=== PATIENT | female | born 1940 | race African-American/Black ===

== ENCOUNTER 2019-07-12 09:36 | Emergency (ER) | payer OTHER, SELFPAY ==
[2019-07-12] MEDS ORDERED: NA CHLORIDE 0.9% 1,000 ML ONE (09:50)
[2019-07-12] MEDS ORDERED: FAMOTIDINE 20 MG/2 ML VIAL IV ONE (09:50)
--- NOTE | 2019-07-12 10:07 | RAD REPORT ---
EXAM DESCRIPTION: CT - Head Brain Wo Cont - 07/12/2019 9:57 am CLINICAL HISTORY: DIZZINESS, syncope, patient found on the floor, hernia repair 4 days earlier COMPARISON: No comparisons TECHNIQUE: Axial 5 mm thick images of the head were obtained without IV contrast. All CT scans are performed using dose optimization technique as appropriate and may include automated exposure control or mA/KV adjustment according to patient size. FINDINGS: No intracranial hemorrhage, mass, edema or shift of mid-line structures. No acute infarcti on changes seen. No abnormal extra-axial fluid collections. Ventricles are normal. Arterial and physi ologic calcifications are present. A mild asymmetry is created by head tilt. Patient has no significa nt atrophy or chronic ischemic change. Mastoid air cells and visualized portions of the paranasal sinuses are clear. No acute bony findings. IMPRESSION: Negative non-contrast CT head examination.
[2019-07-12 10:43] LABS: ALT/SGPT 15 U/L (12-78); AST/SGOT 17 U/L (15-37); Albumin 3.2 g/dL (3.4-5.0); Alkaline Phosphatase 66 U/L (45-117); BUN Blood Urea Nitrogen 17 mg/dL (7-18); Bicarbonate 23 mmol/L (21-32); Bilirubin Direct < 0.1 mg/dL (0-0.2); Bilirubin Total 0.3 mg/dL (0.2-1.0); Glucose Level 132 mg/dL (74-106); Lipase 125 U/L (73-393); Magnesium 1.6 mg/dL (1.8-2.4); NT PRO-BNP 649 pg/mL (<450); Potassium 4.8 mmol/L (3.5-5.1); Protein, Total 7.6 g/dL (6.4-8.2); Sodium Level 128 mmol/L (136-145); Troponin (Emerg Dept Use Only) 0.02 ng/mL (0.0-0.045)
[2019-07-12 10:57] LABS: Absolute Lymphocytes (CBC) 1.4 K/uL (0.7-4.9); Basophils % 1.3 % (0-1.3); Hematocrit 29.8 % (36.0-45.0); MPV 7.9 fL (7.6-11.3); RBC Red Blood Cell Count 3.48 M/uL (3.86-4.86)
[2019-07-12 11:00] LABS: Protime INR 1.04
[2019-07-12] MEDS ORDERED: MAGNESIUM SULFATE 1 gm IVPB 1 GM/100 ML BAG IV ONE (11:22)
--- NOTE | 2019-07-12 11:59 | RAD REPORT ---
EXAM DESCRIPTION: RAD - Abdomen Acute Series - 07/12/2019 11:34 am CLINICAL HISTORY: Abdominal pain FINDINGS: The bowel gas pattern is unremarkable. Free air is not seen beneath the diaphragm. Lungs appear clear of acute infiltrate
--- NOTE | 2019-07-12 12:03 | ER ---
Nurse's Notes [facility] Name: Scarlet Celeste Age: 79 yrs Sex: Female : 1940 Arrival Date: 07/12/2019 Time: 09:38 Bed 6 Private MD: Diagnosis: Weakness;Anemia, unspecified;Hypomagnesemia;Syncope and collapse-near;Volume depletion;Type 2 diabetes mellitus;Hypo-osmolality and hyponatremia;Urinary tract infection, site not specified Presentation: 07/12 09:38 Presenting complaint: EMS states: Daughter found pt on the ground at home, had a hernia jl7 repair 4 days ago, pt reports feeling weak every since the surgery, pt reports no BM since Monday or Monday and is having generalized abdominal discomfort. Transition of care: patient was not received from another setting of care. Onset of symptoms was July 12, 2019. Risk Assessment: Do you want to hurt yourself or someone else? Patient reports no desire to harm self or others. Initial Sepsis Screen: Does the patient meet any 2 criteria? No. Patient's initial sepsis screen is negative. Does the patient have a suspected source of infection? No. Patient's initial sepsis screen is negative. Care prior to arrival: None. 09:38 Method Of Arrival: EMS: [facility] 09:38 Acuity: GUIDO 2 Historical: - Allergies: 09:42 PENICILLINS; jl7 09:42 amlodipine; jl7 - PMHx: 09:42 Hypertension; Diabetes - NIDDM; jl7 - PSHx: 09:42 Hernia repair; jl7 - Coronavirus screen:: The patient has NOT traveled to [place] in the past 14 days. Proceed with normal triage process as indicated. - Social history:: Smoking status: Patient denies any tobacco usage or history of. - Family history:: not pertinent. - Ebola Screening: : No symptoms or risks identified at this time. Screenin:50 Abuse screen: Denies threats or abuse. Nutritional screening: No deficits noted. em Tuberculosis screening: No symptoms or risk factors identified. Fall Risk None identified. Assessment: 09:50 General: Appears in no apparent distress. comfortable, Behavior is calm, cooperative, em Reports fatigue for Denies fever. Pain: Complains of pain in abdomen Pain currently is 3 out of 10 on a pain scale. Neuro: Level of Consciousness is awake, alert, obeys commands, Oriented to person, place, time, situation, Appropriate for age Reports a syncopal episode weakness since Monday. Cardiovascular: Capillary refill < 3 seconds Patient's skin is warm and dry. Rhythm is sinus bradycardia. Respiratory: Airway is patent Respiratory effort is even, unlabored, Respiratory pattern is regular, symmetrical. GI: Abdomen is flat, abdominal incisions noted from recent hernia surgery, no redness or drainage noted, steri strips in place, abdominal binder in place Bowel sounds present X 4 quads. Reports constipation, since Monday Patient currently denies nausea, vomiting. : Reports. Derm: Skin is intact, is thin, Skin is dry, Skin is pale. Musculoskeletal: Capillary refill < 3 seconds, Range of motion: intact in all extremities. 10:29 Reassessment: Patient appears in no apparent distress at this time. Patient and/or em family updated on plan of care and expected duration. Pain level reassessed. Patient is alert, oriented x 3, equal unlabored respirations, skin warm/dry/pink. daughter at bedside. 10:42 Reassessment: recollect sent to lab. em 11:14 Reassessment: Pt requested a bedpan, informed pt we needed to get a urine sample to [facility] send for culture, pt refused straight cath at this time and reports feeling too weak to provide a clean catch. 11:35 Reassessment: reports tiredness during orthostatics, denied dizziness, tolerated well. em 12:29 Reassessment: reports feeling chest tightness after medication administration, provider em notified. Vital Signs: 09:42 BP 129 / 68; Pulse 52; Resp 16 S; Temp 98.1(O); Pulse Ox 96% on R/A; jl7 10:29 BP 128 / 59; Pulse 60; Resp 16; Temp 98.1(O); Pulse Ox 99% on R/A; em 11:26 BP 128 / 66 Supine; Pulse 64; em 11:26 BP 140 / 65 Sitting; Pulse 62; em 11:26 BP 133 / 65 Standing; Pulse 61; em 11:26 tolerated orthostatics well, denied dizziness em ED Course: 09:38 Patient arrived in ED. jl7 09:40 Mark Hernandez MD is Attending Physician. [facility] 09:40 Gibran Miles, RN is Primary Nurse. em 09:41 Triage completed. jl7 09:42 Arm band placed on right wrist. jl7 09:43 EKG completed in triage. Results shown to MD. jl7 09:50 Patient has correct armband on for positive identification. Placed in gown. Bed in low em position. Call light in reach. Side rails up X2. shelter monitor on. Pulse ox on. NIBP on. 09:55 Missed attempt(s): 22 gauge in right forearm. Bleeding controlled, band aid applied, em catheter tip intact. 10:22 Initial lab(s) drawn, by me, sent to lab. Inserted saline lock: 22 gauge in left wrist, jl7 using aseptic technique. Blood collected. 12:01 Low Giles MD is Referral Physician. laya 13:13 No provider procedures requiring assistance completed. IV discontinued, intact, jl7 bleeding controlled, No redness/swelling at site. Pressure dressing applied. Administered Medications: 10:21 Drug: NS 0.9% 500 ml Route: IV; Rate: bolus; Site: left wrist; jl7 11:00 Follow up: IV Status: Completed infusion; IV Intake: 500ml em 10:21 Drug: NS 0.9% 1000 ml Route: IV; Rate: 125 ml/hr; Site: left wrist; jl7 12:45 Follow up: IV Status: Order to discontinue infusion em 10:22 Drug: Pepcid 20 mg Route: IVP; Site: left wrist; jl7 10:40 Follow up: Response: No adverse reaction em 11:25 Drug: Magnesium Sulfate 1 grams Route: IVPB; Infused Over: 1 hrs; Site: left wrist; em 12:30 Follow up: Response: No adverse reaction; IV Status: Completed infusion; IV Intake: em 100ml 12:27 Drug: Rocephin 1 grams Route: IV; Rate: per protocol; Site: left wrist; em 12:45 Follow up: Response: No adverse reaction; IV Status: Completed infusion; IV Intake: 10mlem 12:27 Drug: Cipro 250 mg Route: PO; em 12:45 Follow up: Response: No adverse reaction em Point of Care Testing: Blood Glucose: 10:23 Blood Glucose: 141 mg/dL; jl7 Ranges: Intake: 11:00 IV: 500ml; Total: 500ml. em Outcome: 12:01 Discharge ordered by . laya 13:13 Discharged to home ambulatory. gabriella 13:13 Condition: stable 13:13 Discharge instructions given to patient, family, Instructed on discharge instructions, follow up and referral plans. medication usage, Demonstrated understanding of instructions, follow-up care, medications, Prescriptions given X 3. 13:13 Patient left the ED. jl7 Addendum: 07/15/2019 16:55 Addendum: Culture Results: Positive urine culture. Bacteria is resistant to, has s s intermediate sensitivity, or is not tested against prescribed antibiotics. Report given to UGO for further evaluation and then to flooring helper for follow up with patient. Signatures: Mark Hernandez MD MD cha Munoz, Edgar, RN RN Luna Urbina RN RN ss Leal, Jahala, RN RN jl7 Corrections: (The following items were deleted from the chart) 07/12 10:23 09:40 EKG done, by ED staff, reviewed by Mark quiroz jl7
--- NOTE | 2019-07-12 12:03 | EDPHYS ---
Physician Documentation [facility] Name: Scarlet Celeste Age: 79 yrs Sex: Female : 1940 Arrival Date: 07/12/2019 Time: 09:38 Bed 6 Private MD: ED Physician Mark Hrenandez HPI: 07/12 09:44 This 79 yrs old Black Female presents to ER via EMS with complaints of Syncope. laya 09:44 The patient has experienced near-syncope, almost passed out, felt dizzy, felt faint, laya felt generally weak. Onset: The symptoms/episode began/occurred just prior to arrival. Duration: This was a single episode, that lasted 30 second(s). Context: the episode(s) was witnessed, by family. Associated injury: The patient did not suffer any apparent associated injury. Associated signs and symptoms: The patient has no apparent associated signs or symptoms. Current symptoms: Currently, the patient is not experiencing any symptoms. The patient has not experienced similar symptoms in the past. Historical: - Allergies: 09:42 PENICILLINS; jl7 09:42 amlodipine; jl7 - PMHx: 09:42 Hypertension; Diabetes - NIDDM; jl7 - PSHx: 09:42 Hernia repair; jl7 - Coronavirus screen:: The patient has NOT traveled to [place] in the past 14 days. Proceed with normal triage process as indicated. - Social history:: Smoking status: Patient denies any tobacco usage or history of. - Family history:: not pertinent. - Ebola Screening: : No symptoms or risks identified at this time. ROS: 09:44 Constitutional: Negative for fever, chills, and weight loss, Eyes: Negative for injury, laya pain, redness, and discharge, ENT: Negative for injury, pain, and discharge, Neck: Negative for injury, pain, and swelling, Cardiovascular: Negative for chest pain, palpitations, and edema, Respiratory: Negative for shortness of breath, cough, wheezing, and pleuritic chest pain, Abdomen/GI: Negative for abdominal pain, nausea, vomiting, diarrhea, and constipation, Back: Negative for injury and pain, : Negative for injury, bleeding, discharge, and swelling, MS/Extremity: Negative for injury and deformity, Skin: Negative for injury, rash, and discoloration, Psych: Negative for depression, anxiety, suicide ideation, homicidal ideation, and hallucinations, Allergy/Immunology: Negative for hives, rash, and allergies, Endocrine: Negative for neck swelling, polydipsia, polyuria, polyphagia, and marked weight changes, Hematologic/Lymphatic: Negative for swollen nodes, abnormal bleeding, and unusual bruising. 09:44 Neuro: Positive for dizziness, near syncope, weakness. Exam: 09:44 Constitutional: This is a well developed, well nourished patient who is awake, alert, laya and in no acute distress. Head/Face: Normocephalic, atraumatic. Eyes: Pupils equal round and reactive to light, extra-ocular motions intact. Lids and lashes normal. Conjunctiva and sclera are non-icteric and not injected. Cornea within normal limits. Periorbital areas with no swelling, redness, or edema. ENT: Nares patent. No nasal discharge, no septal abnormalities noted. Tympanic membranes are normal and external auditory canals are clear. Oropharynx with no redness, swelling, or masses, exudates, or evidence of obstruction, uvula midline. Mucous membranes moist. Neck: Trachea midline, no thyromegaly or masses palpated, and no cervical lymphadenopathy. Supple, full range of motion without nuchal rigidity, or vertebral point tenderness. No Meningismus. Chest/axilla: Normal chest wall appearance and motion. Nontender with no deformity. No lesions are appreciated. Cardiovascular: Regular rate and rhythm with a normal S1 and S2. No gallops, murmurs, or rubs. Normal PMI, no JVD. No pulse deficits. Respiratory: Lungs have equal breath sounds bilaterally, clear to auscultation and percussion. No rales, rhonchi or wheezes noted. No increased work of breathing, no retractions or nasal flaring. Abdomen/GI: Soft, non-tender, with normal bowel sounds. No distension or tympany. No guarding or rebound. No evidence of tenderness throughout. Back: No spinal tenderness. No costovertebral tenderness. Full range of motion. Skin: Warm, dry with normal turgor. Normal color with no rashes, no lesions, and no evidence of cellulitis. MS/ Extremity: Pulses equal, no cyanosis. Neurovascular intact. Full, normal range of motion. Neuro: Awake and alert, GCS 15, oriented to person, place, time, and situation. Cranial nerves II-XII grossly intact. Motor strength 5/5 in all extremities. Sensory grossly intact. Cerebellar exam normal. Normal gait. Psych: Awake, alert, with orientation to person, place and time. Behavior, mood, and affect are within normal limits. 11:39 Abdomen/GI: Rectal exam: is unremarkable, rectal tone normal, Stool: guaiac negative, [facility] hemorrhoid(s), are not appreciated, mass, is not appreciated, swelling, is not appreciated, tenderness, is not appreciated, the exam is chaperoned by the nurse. Vital Signs: 09:42 BP 129 / 68; Pulse 52; Resp 16 S; Temp 98.1(O); Pulse Ox 96% on R/A; jl7 10:29 BP 128 / 59; Pulse 60; Resp 16; Temp 98.1(O); Pulse Ox 99% on R/A; em 11:26 BP 128 / 66 Supine; Pulse 64; em 11:26 BP 140 / 65 Sitting; Pulse 62; em 11:26 BP 133 / 65 Standing; Pulse 61; em 11:26 tolerated orthostatics well, denied dizziness em MDM: 09:40 Patient medically screened. [facility] 09:45 Data reviewed: vital signs, nurses notes, lab test result(s), EKG, radiologic studies, [facility] CT scan, plain films. 07/12 09:44 Order name: Basic Metabolic Panel [facility] 07/12 09:44 Order name: CBC with Diff [facility] 07/12 09:44 Order name: LFT's [facility] 07/12 09:44 Order name: Magnesium [facility] 07/12 09:44 Order name: NT PRO-BNP [facility] 07/12 09:44 Order name: PT-INR [facility] 07/12 09:44 Order name: Troponin (emerg Dept Use Only) [facility] 07/12 09:44 Order name: Lipase [facility] 07/12 09:44 Order name: Urine Culture [facility] 07/12 09:44 Order name: Type And Screen [facility] 07/12 10:27 Order name: Glucose, Ancillary Testing; Complete Time: 10:36 [facility] 07/12 10:44 Order name: Basic Metabolic Panel; Complete Time: 11:09 [facility] 07/12 10:44 Order name: Liver (Hepatic) Function; Complete Time: 11:09 [facility] 07/12 10:44 Order name: Troponin (Emerg Dept Use Only); Complete Time: 11:09 [facility] 07/12 09:44 Order name: CT Head Brain wo Cont [facility] 07/12 10:24 Order name: CT; Complete Time: 10:36 [facility] 07/12 10:35 Order name: Abdomen Acute Series XRAY [facility] 07/12 10:44 Order name: NT PRO-BNP; Complete Time: 11:09 [facility] 07/12 10:44 Order name: Magnesium; Complete Time: 11:09 [facility] 07/12 10:44 Order name: Lipase; Complete Time: 11:09 [facility] 07/12 10:59 Order name: CBC with Automated Diff; Complete Time: 11:09 [facility] 07/12 11:01 Order name: Type and Screen; Complete Time: 11:09 [facility] 07/12 11:02 Order name: Protime (+INR); Complete Time: 11:09 [facility] 07/12 11:32 Order name: ABO/RH no charge; Complete Time: 11:35 [facility] 07/12 11:50 Order name: Urine Dipstick--Ancillary (enter results) 07/12 12:08 Order name: RAD; Complete Time: 13:04 [facility] 07/12 09:44 Order name: EKG; Complete Time: 09:45 [facility] 07/12 09:44 Order name: Cardiac monitoring; Complete Time: 09:44 [facility] 07/12 09:44 Order name: EKG - Nurse/Tech; Complete Time: 09:44 [facility] 07/12 09:44 Order name: IV Saline Lock; Complete Time: 10:29 [facility] 07/12 09:44 Order name: Labs collected and sent; Complete Time: 10:29 [facility] 07/12 09:44 Order name: O2 Per Protocol; Complete Time: 09:44 [facility] 07/12 09:44 Order name: O2 Sat Monitoring; Complete Time: 09:44 [facility] 07/12 09:44 Order name: Urine Dipstick-Ancillary (obtain specimen); Complete Time: 11:51 [facility] 07/12 10:36 Order name: Labs - recollect needed; Complete Time: 10:44 07/12 11:14 Order name: Orthostatics; Complete Time: 11:38 [facility] 07/12 11:35 Order name: PO challenge; Complete Time: 11:40 [facility] Administered Medications: 10:21 Drug: NS 0.9% 500 ml Route: IV; Rate: bolus; Site: left wrist; jl7 11:00 Follow up: IV Status: Completed infusion; IV Intake: 500ml em 10:21 Drug: NS 0.9% 1000 ml Route: IV; Rate: 125 ml/hr; Site: left wrist; jl7 12:45 Follow up: IV Status: Order to discontinue infusion em 10:22 Drug: Pepcid 20 mg Route: IVP; Site: left wrist; jl7 10:40 Follow up: Response: No adverse reaction em 11:25 Drug: Magnesium Sulfate 1 grams Route: IVPB; Infused Over: 1 hrs; Site: left wrist; em 12:30 Follow up: Response: No adverse reaction; IV Status: Completed infusion; IV Intake: em 100ml 12:27 Drug: Rocephin 1 grams Route: IV; Rate: per protocol; Site: left wrist; em 12:45 Follow up: Response: No adverse reaction; IV Status: Completed infusion; IV Intake: 10mlem 12:27 Drug: Cipro 250 mg Route: PO; em 12:45 Follow up: Response: No adverse reaction em Point of Care Testing: Blood Glucose: 10:23 Blood Glucose: 141 mg/dL; jl7 Ranges: Critical Glucose Levels:Adult <50 mg/dl or >400 mg/dl <40 mg/dl or >180 mg/dl Disposition: 07/12/19 12:01 Discharged to Home. Impression: Weakness, Anemia, unspecified, Hypomagnesemia, Syncope and collapse - near, Volume depletion, Type 2 diabetes mellitus, Hypo-osmolality and hyponatremia, Urinary tract infection, site not specified. - Condition is Stable. - Discharge Instructions: Anemia, Nonspecific, Type 2 Diabetes Mellitus, Diagnosis, Adult, Hypomagnesemia, Hyponatremia, Near-Syncope, Urinary Tract Infection, Adult, Weakness, Fatigue, Urinary Tract Infection, Adult, [id number], Near-Syncope, Kvnn-[id number], Weakness, [id number], Type 2 Diabetes Mellitus, Diagnosis, Adult, Bzen-sy-Hqoe. - Prescriptions for Pepcid 20 mg Oral Tablet - take 1 tablet by ORAL route every 12 hours for 10 days; 20 tablet. Vitamin 27- 0.8 mg Oral Tablet - take 1 tablet by ORAL route once daily; 30 tablet. Cipro 250 mg Oral Tablet - take 1 tablet by ORAL route every 12 hours for 7 days; 14 tablet. - Medication Reconciliation Form, Thank You Letter, Antibiotic Education, Prescription Opioid Use form. - Follow up: Private Physician; When: 2 - 3 days; Reason: Recheck today's complaints, Continuance of care, Re-evaluation by your physician. Follow up: Dr. Low Giles; When: 2 - 3 days; Reason: Recheck today's complaints, Continuance of care, Re-evaluation by your physician. - Problem is new. - Symptoms have improved. Signatures: Dispatcher [employer] EDSeamus Amado RN RN sg Anderson, Corey, MD MD cha Munoz, Edgar, RN RN em Leal, Jahala, RN RN jl7 Corrections: (The following items were deleted from the chart) 13:13 12:01 07/12/2019 12:01 Discharged to Home. Impression: Weakness; Anemia, unspecified; jl7 Hypomagnesemia; Syncope and collapse - near; Volume depletion; Type 2 diabetes mellitus; Hypo-osmolality and hyponatremia; Urinary tract infection, site not specified. Condition is Stable. Discharge Instructions: Anemia, Nonspecific, Type 2 Diabetes Mellitus, Diagnosis, Adult, Hypomagnesemia, Near-Syncope, Weakness, Fatigue, Near-Syncope, Ypvn-[id number], Weakness, Vgyg-mu-Goaf, Type 2 Diabetes Mellitus, Diagnosis, Adult, Aujn-nj-Xacc, Hyponatremia, Urinary Tract Infection, Adult, Urinary Tract Infection, Adult, Zvqg-kn-Zill. Prescriptions for Pepcid 20 mg Oral Tablet - take 1 tablet by ORAL route every 12 hours for 10 days; 20 tablet, Vitamin 27-0.8 mg Oral Tablet - take 1 tablet by ORAL route once daily; 30 tablet, Cipro 250 mg Oral Tablet - take 1 tablet by ORAL route every 12 hours for 7 days; 14 tablet. and Forms are Medication Reconciliation Form, Thank You Letter, Antibiotic Education, Prescription Opioid Use. Follow up: Private Physician; When: 2 - 3 days; Reason: Recheck today's complaints, Continuance of care, Re-evaluation by your physician. Follow up: Dr. Low Giles; When: 2 - 3 days; Reason: Recheck today's complaints, Continuance of care, Re-evaluation by your physician. Problem is new. Symptoms have improved. laya
[2019-07-12] MEDS ORDERED: CIPROFLOXACIN HCL 500 MG TAB ONE (12:13)
[2019-07-12] MEDS ORDERED: CEFTRIAXONE/SWI 1gm 1 GM/10 ML SYR ONE (12:13)
--- NOTE | 2019-07-12 13:33 | EKG ---
Test Date: 2019-07-12 Test Time: 09:39:37 Nuclear Weapons Custodian: ZE MEASUREMENT RESULTS: Intervals: Rate: 52 SC: 154 QRSD: 88 QT: 422 QTc: 392 [place]: P: 62 SC: 154 QRS: 31 T: 53 INTERPRETIVE STATEMENTS: Sinus bradycardia Minimal voltage criteria for LVH, may be normal variant Borderline ECG No previous ECG available for comparison Electronically Signed On 07-12-19 13:32:39 [employer] OFFICER by Elvin Travis
[2019-07-12 13:39] LABS: Urine Blood 1+ (NEG); Urine Glucose NEGATIVE (NEG); Urine Protein NEGATIVE (NEG); Urine Specific Gravity 1.005 (1.005-1.030); Urine pH 5.5 (5.0-7.0)
[2019-07-12 20:56] VITALS: TEMP 98.1
[2019-07-12 20:58] VITALS: O2SAT 99
[2019-07-12 21:14] VITALS: BP 133/65
== END 2019-07-12 13:13 | disposition home or self-care (01) ==
LOC: ER 09:36 → EDBD 09:36 → ER 13:13
DX: E86.9 Volume depletion, unspecified (principal); R53.1 Weakness; D64.9 Anemia, unspecified; E83.42 Hypomagnesemia; E87.1 Hypo-osmolality and hyponatremia; N39.0 Urinary tract infection, site not specified; E11.9 Type 2 diabetes mellitus without complications; I10 Essential (primary) hypertension; Z88.0 Allergy status to penicillin; Z88.8 Allergy status to other drugs, medicaments and biological substances
CPT/HCPCS: 96365; 96361; 93005; 87088; 85025; 87086; 80048; 36415; 86900; 83735; 86850; 85610; 86901; 82947; 80076; 87077; 87186; 81003; 84484; 83690; 83880; 70450; 74022; 96375; 99284; J3475; J0696; J7030

== ENCOUNTER 2019-08-06 12:14 | Observation (INO) | payer OTHER ==
--- OUTSIDE RECORDS SUMMARY | 2019-08-06 12:39 | XMS REPORT ---
:1940 [facility] [address] [place] [address] Care Team Providers Name Role Phone ANGY GONZALEZ Unavailable Unavailable Problems This patient has no known problems. Allergies, Adverse Reactions, Alerts This patient has no known allergies or adverse reactions. Medications This patient has no known medications. 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 Contrast is administered to evaluate the solid organs COMPARISON: Abdominal ultrasound from 07/29/2017 DISCUSSION: LIVER: No focal liver lesion. Main portal vein is patent.BILIARY: Mild ectasia of the common bile duct measuring up to 7 mm. No discrete filling defects are identified within the biliary tree. No keyshawn intrahepatic biliary ductal dilation. There are findings of prior cholecystectomy. Metallic susceptibility artifact is seen at the saarh hepatis and lateral to the pancreatic head.PANCREAS: No pancreatic ductal dilation. No definite solid pancreatic lesion within limitations of examination and artifacts. There is a 2.9 cm duodenal diverticulum adjacent to the pancreatic head.SPLEEN: No splenomegaly. ADRENALS: No nodule.KIDNEYS: Bilateral parapelvic cysts. No keyshawn hydronephrosis. Bilateral subcentimeter T2 hyperintense cysts are incompletely characterized. No definite solid renal lesion. PERITONEUM/RETROPERITONEUM: No free fluid.LYMPH NODES: No upper abdominal lymphadenopathy. VESSELS: Abdominal aorta is normal in caliber. BONES AND SOFT TISSUES: Degenerative changes in the lumbar spine. IMPRESSION: No specific findings of hepatobiliary or pancreatic malignancy. The common bile duct is mildly ectatic. No discrete filling defects are identified in the biliary tree. There is a small amount of metallic susceptibility artifact at the sarah hepatis and adjacent to the pancreatic head, likely from prior cholecystectomy, limiting evaluation. If there remains high clinical suspicion for pancreatic head lesion, a contrast-enhanced CT is recommended. Signed: Jagdish Goinseport Verified Date/Time: 07/31/2017 12:17:51 Reading Location: [facility] [id number] CT Body Reading Room -GLUCOSE METER 2017-07-31 12:08:00 Test Item Value Reference Range Comments POC-GLUCOSE METER (BEAKER) (test 253 mg/dL 70-110 TESTED AT [facility] [address] [facility] leuc=5411) [facility] [address] CBC W/PLT COUNT & AUTO [id number] 12:08:00 Test Item Value Reference Range Comments WHITE BLOOD CELL COUNT (BEAKER) (test zksk=107) 7.3 K/ L 3.5-10.5 RED BLOOD CELL COUNT (BEAKER) (test mdrk=093) 3.94 M/ L 3.93-5.22 HEMOGLOBIN (BEAKER) (test bnjd=402) 11.3 GM/DL 11.2-15.7 HEMATOCRIT (BEAKER) (test waet=902) 35.8 % 34.1-44.9 MEAN CORPUSCULAR VOLUME (BEAKER) (test auzm=621) 90.9 fL 79.4-94.8 MEAN CORPUSCULAR HEMOGLOBIN (BEAKER) (test 28.7 pg 25.6-32.2 gutd=100) MEAN CORPUSCULAR HEMOGLOBIN CONC (BEAKER) (test 31.6 GM/DL 32.2-35.5 fntm=947) RED CELL DISTRIBUTION WIDTH (BEAKER) (test 13.4 % 11.7-14.4 guiw=616) PLATELET COUNT (BEAKER) (test jbir=114) 268 K/CU MM 150-450 MEAN PLATELET VOLUME (BEAKER) (test fdnh=607) 10.0 fL 9.4-12.3 NUCLEATED RED BLOOD CELLS (BEAKER) (test 0 /100 WBC 0-0 kzlr=914) NEUTROPHILS RELATIVE PERCENT (BEAKER) (test 41 % axmy=217) LYMPHOCYTES RELATIVE PERCENT (BEAKER) (test 46 % nayn=609) MONOCYTES RELATIVE PERCENT (BEAKER) (test 8 % olcl=679) EOSINOPHILS RELATIVE PERCENT (BEAKER) (test 3 % ndce=919) BASOPHILS RELATIVE PERCENT (BEAKER) (test 2 % rumy=600) NEUTROPHILS ABSOLUTE COUNT (BEAKER) (test 2.99 K/ L 1.56-6.13 pmwe=789) LYMPHOCYTES ABSOLUTE COUNT (BEAKER) (test 3.34 K/ L 1.18-3.74 rglc=408) MONOCYTES ABSOLUTE COUNT (BEAKER) (test 0.57 K/ L 0.24-0.36 urgp=878) EOSINOPHILS ABSOLUTE COUNT (BEAKER) (test 0.22 K/ L 0.04-0.36 qsnb=591) BASOPHILS ABSOLUTE COUNT (BEAKER) (test 0.11 K/ L 0.01-0.08 jzvf=469) IMMATURE GRANULOCYTES-RELATIVE PERCENT (BEAKER) 0 % 0-1 (test gcue=3036) POCT-GLUCOSE [id number] 08:04:00 Test Item Value Reference Range Comments POC-GLUCOSE METER (BEAKER) 99 mg/dL 70-110 TESTED AT [facility] [address] [facility] (test qnvw=4096) [facility] [address] [id number] 06:55:00 Test Item Value Reference Range Comments MAGNESIUM (BEAKER) (test tuxe=910) 1.6 mg/dL 1.6-2.6 BASIC METABOLIC [id number] 06:55:00 Test Item Value Reference Range Comments SODIUM (BEAKER) (test 140 meq/L 136-145 hnzx=917) POTASSIUM (BEAKER) (test 3.7 meq/L 3.5-5.1 kntl=590) CHLORIDE (BEAKER) (test 109 meq/L 98-107 icjp=645) CO2 (BEAKER) (test 23 meq/L 22-29 psms=746) BLOOD UREA NITROGEN 12 mg/dL 7-21 (BEAKER) (test jtms=850) CREATININE (BEAKER) (test 0.82 mg/dL 0.57-1.25 jvpo=810) GLUCOSE RANDOM (BEAKER) 96 mg/dL 70-105 (test uwvo=598) CALCIUM (BEAKER) (test 9.5 mg/dL 8.4-10.2 cuvj=590) EGFR (BEAKER) (test 82 mL/min/1.73 sq m ESTIMATED GFR IS NOT fmih=9081) ACCURATE CREATININE CLEARANCE IN PREDICTING GLOMERULAR FILTRATION RATE. ESTIMATED GFR IS NOT APPLICABLE FOR DIALYSIS PATIENTS. POCT-GLUCOSE [id number] 21:05:00 Test Item Value Reference Range Comments POC-GLUCOSE METER (BEAKER) 98 mg/dL 70-110 TESTED AT [address] (test dpxg=9886) [place] [id number] POCT-GLUCOSE [id number] 17:04:00 Test Item Value Reference Range Comments POC-GLUCOSE METER (BEAKER) 89 mg/dL 70-110 TESTED AT [address] (test rehe=4799) [place] [id number] POCT-GLUCOSE EBSAQ Test Item Value Reference Range Comments POC-GLUCOSE METER (BEAKER) 202 mg/dL 70-110 TESTED AT [address] (test rttb=6242) [place] [id number] CBC W/PLT COUNT & AUTO [id number] 09:44:00 Test Item Value Reference Range Comments WHITE BLOOD CELL COUNT (BEAKER) (test fizo=819) 7.1 K/ L 3.5-10.5 RED BLOOD CELL COUNT (BEAKER) (test rwwc=584) 3.76 M/ L 3.93-5.22 HEMOGLOBIN (BEAKER) (test vodk=037) 11.0 GM/DL 11.2-15.7 HEMATOCRIT (BEAKER) (test sebg=196) 34.6 % 34.1-44.9 MEAN CORPUSCULAR VOLUME (BEAKER) (test cmsj=325) 92.0 fL 79.4-94.8 MEAN CORPUSCULAR HEMOGLOBIN (BEAKER) (test 29.3 pg 25.6-32.2 rzrt=245) MEAN CORPUSCULAR HEMOGLOBIN CONC (BEAKER) (test 31.8 GM/DL 32.2-35.5 mpxp=494) RED CELL DISTRIBUTION WIDTH (BEAKER) (test 13.6 % 11.7-14.4 kucy=028) PLATELET COUNT (BEAKER) (test nhnc=429) 252 K/CU MM 150-450 MEAN PLATELET VOLUME (BEAKER) (test yxur=243) 9.9 fL 9.4-12.3 NUCLEATED RED BLOOD CELLS (BEAKER) (test 0 /100 WBC 0-0 chdg=848) IMMATURE GRANULOCYTES-RELATIVE PERCENT (BEAKER) 0 % 0-1 (test jlnq=0264) (MANUAL DIFFERENTIAL)2017-07-30 09:44:00 Test Item Value Reference Range Comments NEUTROPHILS - REL (DIFF) (BEAKER) (test xtrz=7113) 37 % LYMPHOCYTES - REL (DIFF) (BEAKER) (test yvko=8702) 51 % MONOCYTES - REL (DIFF) (BEAKER) (test ioej=0436) 9 % EOSINOPHILS - REL (DIFF) (BEAKER) (test zmdj=5789) 3 % BASOPHILS - REL (DIFF) (BEAKER) (test lnlm=4984) 0 % NEUTROPHILS - ABS (DIFF) (BEAKER) (test hdeq=9795) 2.63 K/ L 1.80-8.00 LYMPHOCYTES - ABS (DIFF) (BEAKER) (test envl=4763) 3.62 K/ L 1.48-4.50 MONOCYTES - ABS (DIFF) (BEAKER) (test zjjn=9675) 0.64 K/ L 0.00-1.30 EOSINOPHILS - ABS (DIFF) (BEAKER) (test gzmz=6162) 0.21 K/ L 0.00-0.50 BASOPHILS - ABS (DIFF) (BEAKER) (test dyyh=0078) 0.00 K/ L 0.00-0.20 TOTAL COUNTED (BEAKER) (test xnaz=3576) 100 WBC MORPHOLOGY (BEAKER) (test gkmd=454) Normal PLT MORPHOLOGY (BEAKER) (test jkqo=804) Normal RBC MORPHOLOGY (BEAKER) (test gxuk=820) Normal CREATINE KINASE (CK), TOTAL AND [id number] 07:51:00 Test Item Value Reference Range Comments CREATINE KINASE TOTAL (BEAKER) (test dulm=810) 143 U/L 29-200 CREATINE KINASE-MB (BEAKER) (test lmlt=050) 4.1 ng/mL 0.0-6.6 CREATINE KINASE-MB INDEX (BEAKER) (test seoj=290) 2.9 % CK-MB Reference Range:<6.7 Normal6.7-10.0 Borderline>10.0 AbnormalTROPONIN [id number] 07:51:00 Test Item Value Reference Range Comments TROPONIN I (BEAKER) (test pajk=966) 0.02 ng/mL 0.00-0.03 Troponin I (TnI) levels must be interpreted in the context of the presenting symptoms and the clinical findings. Elevated TnI levels indicate myocardial damage, but are not specific for ischemic heart disease. Elevated TnI levels are seen in patients with other cardiac conditions (including myocarditis and congestive heart failure), and slight TnI elevations occur in patients with other conditions, including sepsis, renal failure, acidosis, acute neurological disease, and persistent tachyarrhythmia.POCT-GLUCOSE [id number] 07:41:00 Test Item Value Reference Range Comments POC-GLUCOSE METER (BEAKER) 85 mg/dL 70-110 TESTED AT [facility] [address] [facility]) (test cgzu=9075) [facility] [address] GAMMA GLUTAMYL TRANSFERASE (GGT)2017-07-30 07:41:00 Test Item Value Reference Range Comments GAMMA GLUTAMYL TRANSFERASE (BEAKER) (test lkjq=882) 305 U/L 9-64 BILIRUBIN, [id number] 07:41:00 Test Item Value Reference Range Comments BILIRUBIN DIRECT (BEAKER) (test dgcj=034) 0.2 mg/dL 0.1-0.5 COMPREHENSIVE METABOLIC [id number] 07:41:00 Test Item Value Reference Range Comments TOTAL PROTEIN (BEAKER) 7.1 gm/dL 6.0-8.3 (test fjsc=449) ALBUMIN (BEAKER) (test 3.3 g/dL 3.5-5.0 oigh=0425) ALKALINE PHOSPHATASE 186 U/L 40-150 (BEAKER) (test dnfp=353) BILIRUBIN TOTAL (BEAKER) < mg/dL 0.2-1.2 (test hsdm=230) SODIUM (BEAKER) (test 141 meq/L 136-145 xlhf=115) POTASSIUM (BEAKER) (test 3.6 meq/L 3.5-5.1 dbpq=443) CHLORIDE (BEAKER) (test 110 meq/L 98-107 sufx=489) CO2 (BEAKER) (test 24 meq/L 22-29 feao=053) BLOOD UREA NITROGEN 13 mg/dL 7-21 (BEAKER) (test vtrt=903) CREATININE (BEAKER) (test 0.82 mg/dL 0.57-1.25 tqir=000) GLUCOSE RANDOM (BEAKER) 83 mg/dL 70-105 (test oisl=636) CALCIUM (BEAKER) (test 9.3 mg/dL 8.4-10.2 bvhy=778) AST (SGOT) (BEAKER) (test 30 U/L 5-34 znmx=296) ALT (SGPT) (BEAKER) (test 88 U/L 6-55 lprl=812) EGFR (BEAKER) (test 82 mL/min/1.73 sq m ESTIMATED GFR IS NOT lpfx=3870) ACCURATE CREATININE CLEARANCE IN PREDICTING GLOMERULAR FILTRATION RATE. ESTIMATED GFR IS NOT APPLICABLE FOR DIALYSIS PATIENTS. POCT-GLUCOSE [id number] 20:46:00 Test Item Value Reference Range Comments POC-GLUCOSE METER (BEAKER) 99 mg/dL 70-110 TESTED AT [address] (test zqgg=2404) [place] [address] POCT-GLUCOSE [id number] 17:37:00 Test Item Value Reference Range Comments POC-GLUCOSE METER (BEAKER) 143 mg/dL 70-110 TESTED AT [address] (test epat=1364) [place] [address] CREATINE KINASE (CK), TOTAL AND [id number] 17:27:00 Test Item Value Reference Range Comments CREATINE KINASE TOTAL (BEAKER) (test wqps=512) 196 U/L 29-200 CREATINE KINASE-MB (BEAKER) (test rmtp=503) 5.1 ng/mL 0.0-6.6 CREATINE KINASE-MB INDEX (BEAKER) (test bmsy=901) 2.6 % CK-MB Reference Range:<6.7 Normal6.7-10.0 Borderline>10.0 AbnormalTROPONIN [id number] 17:27:00 Test Item Value Reference Range Comments TROPONIN I (BEAKER) (test pjyj=836) 0.02 ng/mL 0.00-0.03 Troponin I (TnI) levels must be interpreted in the context of the presenting symptoms and the clinical findings. Elevated TnI levels indicate myocardial damage, but are not specific for ischemic heart disease. Elevated TnI levels are seen in patients with other cardiac conditions (including myocarditis and congestive heart failure), and slight TnI elevations occur in patients with other conditions, including sepsis, renal failure, acidosis, acute neurological disease, and persistent tachyarrhythmia.[id number] 16:54:00 Test Item Value Reference Range Comments D-DIMER QUANTITATIVE (BEAKER) (test rkrf=405) 0.60 MG/L FEU <0.50 Intended Use: The D-Dimer Assay can be used to aid in the diagnosis of Deep Vein Thrombosis (DVT) and Pulmonary Embolism Disease (PED).In patients with low pre-test probability, various studies concerning STA Liatest D-dimer test have reported that with a cutoff value of 0.50 MG/L FEU, the Negative Predictive Value (NPV) regarding the exclusion of thrombosis is within 95-100% range.POCT- GLUCOSE [id number] 14:54:00 Test Item Value Reference Range Comments POC-GLUCOSE METER (BEAKER) 113 mg/dL 70-110 TESTED AT [facility] [address] [facility]) (test bgtm=4217) [facility] [address] CBC W/PLT COUNT & AUTO [id number] 13:06:00 Test Item Value Reference Range Comments WHITE BLOOD CELL COUNT (BEAKER) (test rqpj=926) 7.2 K/ L 3.5-10.5 RED BLOOD CELL COUNT (BEAKER) (test uzqb=720) 3.92 M/ L 3.93-5.22 HEMOGLOBIN (BEAKER) (test ijxt=184) 11.3 GM/DL 11.2-15.7 HEMATOCRIT (BEAKER) (test bshk=234) 35.6 % 34.1-44.9 MEAN CORPUSCULAR VOLUME (BEAKER) (test aslb=470) 90.8 fL 79.4-94.8 MEAN CORPUSCULAR HEMOGLOBIN (BEAKER) (test 28.8 pg 25.6-32.2 ekam=627) MEAN CORPUSCULAR HEMOGLOBIN CONC (BEAKER) (test 31.7 GM/DL 32.2-35.5 tqcn=221) RED CELL DISTRIBUTION WIDTH (BEAKER) (test 13.8 % 11.7-14.4 htcz=870) PLATELET COUNT (BEAKER) (test vrhw=177) 254 K/CU MM 150-450 MEAN PLATELET VOLUME (BEAKER) (test pwfn=578) 10.2 fL 9.4-12.3 NUCLEATED RED BLOOD CELLS (BEAKER) (test 0 /100 WBC 0-0 xveu=268) NEUTROPHILS RELATIVE PERCENT (BEAKER) (test 37 % scyf=464) LYMPHOCYTES RELATIVE PERCENT (BEAKER) (test 50 % yrvz=363) MONOCYTES RELATIVE PERCENT (BEAKER) (test 8 % eytj=257) EOSINOPHILS RELATIVE PERCENT (BEAKER) (test 4 % fplt=456) BASOPHILS RELATIVE PERCENT (BEAKER) (test 1 % owmz=944) NEUTROPHILS ABSOLUTE COUNT (BEAKER) (test 2.66 K/ L 1.56-6.13 vjlb=745) LYMPHOCYTES ABSOLUTE COUNT (BEAKER) (test 3.57 K/ L 1.18-3.74 jnbr=823) MONOCYTES ABSOLUTE COUNT (BEAKER) (test 0.55 K/ L 0.24-0.36 urpa=257) EOSINOPHILS ABSOLUTE COUNT (BEAKER) (test 0.26 K/ L 0.04-0.36 pcme=374) BASOPHILS ABSOLUTE COUNT (BEAKER) (test 0.08 K/ L 0.01-0.08 tmqk=812) IMMATURE GRANULOCYTES-RELATIVE PERCENT (BEAKER) 0 % 0-1 (test pdgr=5368) B-TYPE NATRIURETIC FACTOR (BNP)2017-07-29 12:21:00 Test Item Value Reference Range Comments B-TYPE NATRIURETIC PEPTIDE (BEAKER) (test 200 pg/mL 0-100 uhao=794) GAMMA GLUTAMYL TRANSFERASE (GGT)2017-07-29 12:16:00 Test Item Value Reference Range Comments GAMMA GLUTAMYL TRANSFERASE (BEAKER) (test vhcj=665) 327 U/L 9-64 CARCINOEMBRYONIC ANTIGEN (CEA)2017-07-29 11:33:00 Test Item Value Reference Range Comments CARCINOEMBRYONIC ANTIGEN (BEAKER) (test zahh=059) 2.5 ng/mL 0.0-5.0 POCT-GLUCOSE [id number] 11:26:00 Test Item Value Reference Range Comments POC-GLUCOSE METER (BEAKER) 114 mg/dL 70-110 TESTED AT [facility] [address] [facility]) (test sfff=0817) [facility] [address] CREATINE KINASE (CK), TOTAL AND [id number] 11:19:00 Test Item Value Reference Range Comments CREATINE KINASE TOTAL (BEAKER) (test botv=400) 204 U/L 29-200 CREATINE KINASE-MB (BEAKER) (test jpwu=564) 5.7 ng/mL 0.0-6.6 CREATINE KINASE-MB INDEX (MABLE) (test pxlm=430) 2.8 % CK-MB Reference Range:<6.7 Normal6.7-10.0 Borderline>10.0 AbnormalTROPONIN [id number] 11:19:00 Test Item Value Reference Range Comments TROPONIN I (MABLE) (test kqjh=673) 0.02 ng/mL 0.00-0.03 Troponin I (TnI) levels must be interpreted in the context of the presenting symptoms and the clinical findings. Elevated TnI levels indicate myocardial damage, but are not specific for ischemic heart disease. Elevated TnI levels are seen in patients with other cardiac conditions (including myocarditis and congestive heart failure), and slight TnI elevations occur in patients with other conditions, including sepsis, renal failure, acidosis, acute neurological disease, and persistent tachyarrhythmia.U/S, ABDOMINAL, [id number] 10:11: 00Abdomen limited area? Add comment if clarification is needed.->Right upper quadrantReason for exam:->Concern for choledocho at [facility]AL REPORT ULTRASOUND RIGHT UPPER QUADRANT OF THE ABDOMEN HISTORY: Abdominal pain, cholelithiasis, epigastric pain COMPARISON: None TECHNIQUE: Real -time ultrasound of the right upper quadrant of the abdomen was performed. FINDINGS: The liver is normal in size and echogenicity. Hepatic length is 12.4 cm. No mass lesion is visualized. The gallbladder is absent. The common bile duct is normal in caliber, measuring 4 mm. The main portal vein is normal in caliber, measuring 12 mm. No pancreatic abnormality was visualized. No ascites or pleural effusion. The right kidney isnormal in size, contour, and echogenicity. The right kidney measures 8.7 cm in length. Mild right hydronephrosis. No right renal mass. No shadowing calculi are visualized. No abnormalities are seen in the abdominal aorta, inferior vena cava, or hepatic veins. IMPRESSION: 1. Mild right hydronephrosis. Signed: Serjio Glasgow MDReport Verified Date/Time: 07/29/2017 10:11:28 Reading Location[id number] Electronically signed by: SERJIO GLASGOW MD on 2017 10:11 AMPOCT-GLUCOSE [id number] 10:00:00 Test Item Value Reference Range Comments POC-GLUCOSE METER (BEAKER) 107 mg/dL 70-110 TESTED AT [facility] [address] (test bgnb=1355) [facility] [address] HEMOGLOBIN [id number] 08:15:00 Test Item Value Reference Range Comments HEMOGLOBIN A1C (BEAKER) (test mmwe=594) 6.8 % 4.3-6.1 [id number] 07:35:00 Test Item Value Reference Range Comments PHOSPHORUS (BEAKER) (test kibk=050) 3.9 mg/dL 2.3-4.7 [id number] 07:35:00 Test Item Value Reference Range Comments MAGNESIUM (BEAKER) (test atlg=360) 1.8 mg/dL 1.6-2.6 COMPREHENSIVE METABOLIC [id number] 07:35:00 Test Item Value Reference Range Comments TOTAL PROTEIN (BEAKER) 7.5 gm/dL 6.0-8.3 (test laey=359) ALBUMIN (BEAKER) (test 3.5 g/dL 3.5-5.0 ikod=0852) ALKALINE PHOSPHATASE 211 U/L 40-150 (BEAKER) (test xwug=498) BILIRUBIN TOTAL (BEAKER) < mg/dL 0.2-1.2 (test gyfi=834) SODIUM (BEAKER) (test 142 meq/L 136-145 iptg=013) POTASSIUM (BEAKER) (test 3.6 meq/L 3.5-5.1 plkb=586) CHLORIDE (BEAKER) (test 110 meq/L 98-107 smpl=491) CO2 (BEAKER) (test 22 meq/L 22-29 smni=518) BLOOD UREA NITROGEN 12 mg/dL 7-21 (BEAKER) (test lvry=165) CREATININE (BEAKER) (test 0.84 mg/dL 0.57-1.25 ohwq=658) GLUCOSE RANDOM (BEAKER) 107 mg/dL 70-105 (test nqyk=874) CALCIUM (BEAKER) (test 9.4 mg/dL 8.4-10.2 zvtu=679) AST (SGOT) (BEAKER) (test 37 U/L 5-34 myzw=250) ALT (SGPT) (BEAKER) (test 119 U/L 6-55 hdxb=462) EGFR (BEAKER) (test 80 mL/min/1.73 sq m ESTIMATED GFR IS NOT hucw=5789) ACCURATE CREATININE CLEARANCE IN PREDICTING GLOMERULAR FILTRATION RATE. ESTIMATED GFR IS NOT APPLICABLE FOR DIALYSIS PATIENTS. LIPID [id number] 07:35:00 Test Item Value Reference Range Comments TRIGLYCERIDES (BEAKER) (test szqi=690) 128 mg/dL CHOLESTEROL (BEAKER) (test ybfq=597) 162 mg/dL HDL CHOLESTEROL (BEAKER) (test drnc=305) 47 mg/dL LDL CHOLESTEROL CALCULATED (BEAKER) (test 89 mg/dL wmhq=146) Triglyceride Reference Range: Low Risk <150 Borderline 150- 199 High Risk 200-499 Very High Risk >=500Cholesterol Reference Range: Low Risk <200 Borderline 200-239 High Risk > 240HDL Cholesterol Reference Range: Low Risk >=60 High Risk <40LDL Cholesterol Reference Range: Optimal <100 Near Optimal 100-129 Borderline 130-159 High 160-189 Very High >=190CREATINE KINASE (CK), TOTAL AND [id number] 07:35:00 Test Item Value Reference Range Comments CREATINE KINASE TOTAL (BEAKER) (test tewf=946) 216 U/L 29-200 CREATINE KINASE-MB (BEAKER) (test mbmo=179) 6.0 ng/mL 0.0-6.6 CREATINE KINASE-MB INDEX (BEAKER) (test kelc=422) 2.8 % CK-MB Reference Range:<6.7 Normal6.7-10.0 Borderline>10.0 [id number] 07:35:00 Test Item Value Reference Range Comments LIPASE (BEAKER) (test ltvq=701) 29 U/L 8-78 TROPONIN [id number] 07:32:00 Test Item Value Reference Range Comments TROPONIN I (BEAKER) (test vsws=081) 0.01 ng/mL 0.00-0.03 Troponin I (TnI) levels must be interpreted in the context of the presenting symptoms and the clinical findings. Elevated TnI levels indicate myocardial damage, but are not specific for ischemic heart disease. Elevated TnI levels are seen in patients with other cardiac conditions (including myocarditis and congestive heart failure), and slight TnI elevations occur in patients with other conditions, including sepsis, renal failure, acidosis, acute neurological disease, and persistent tachyarrhythmia.POCT-GLUCOSE [id number] 05:07:00 Test Item Value Reference Range Comments POC-GLUCOSE METER (MABLE) 113 mg/dL 70-110 TESTED AT [facility] [address] [facility] (test rhhn=0762) [place] [id number]
--- OUTSIDE RECORDS SUMMARY | 2019-08-06 12:39 | XMS REPORT | Summary of Care ---
:1940 Author Organization [facility] - [facility] Address [address] [place] [address] Care Team Providers Name Role Phone Yovani Laurent MD Primary Care Provider Encounter Details Date Type Department Care Team Description 01/03/2019 Orders Only [facility] Doctor Unassigned, No [address] [facility] [place] [address] [address] [place] [address] Allergies Active Allergy Reactions Severity Noted Date Comments Clay Inhibitors Swelling 07/06/2009 SEVERE ANGIOEDEMA Hydralazine Anaphylaxis 11/16/2017 Iodine Dizziness, Hives, Palpitations, 11/16/2017 Shortness of Breath Iron Anaphylaxis 03/13/2007 Lisinopril Swelling 07/29/2017 Penicillins Hives 02/01/2007 documented as of this encounter (statuses as of 01/03/2019) Medications Medication Sig Dispensed Refills Start Date End Date Status ASPIRIN 81 MG ORAL TAB None Entered 0 Active gabapentin 300 mg Take 1 capsule by 90 capsule 1 12/13/2017 Active capsule mouth at bedtime. metFORMIN 1,000 mg Take 1 tablet by 180 tablet 1 12/13/2017 Active tablet mouth 2 (two) times daily with meals. pantoprazole 40 mg EC TAKE BY MOUTH 1 90 tablet 3 12/13/2017 Active tablet TABLET DAILY ALPRAZolam 0.5 mg Take 0.5 mg by 0 Active tablet mouth 3 (three) times daily. isosorbide mononitrate Take 1 tablet by 90 tablet 3 01/30/2018 Active 60 mg 24 hr mouth daily. tabletIndications: Essential hypertension magnesium oxide 400 mg Take 1 tablet by 30 tablet 0 02/21/2018 Active tablet mouth daily. sodium,potassium,mag Use as directed 1 Box 0 03/09/2018 Active sulfates (SUPREP BOWEL prior to PREP KIT) colonoscopy. 17.5-3.13-1.6 gram SolR loteprednol (LOTEMAX) Place 1 Drop in 5 mL 0 03/29/2018 Active 0.5 % ophthalmic left eye 2 (two) suspension drops times daily. Morning and bedtime blood sugar diagnostic Test sugars once 100 Strip 2 05/01/2018 Active (ONETOUCH ULTRA BLUE daily. E11.65 TEST STRIP) strip SERTraline 25 mg Take 1 tablet by 30 tablet 0 05/12/2018 Active tablet mouth daily. prednisoLONE acetate 1 Place 1 Drop in 5 mL 1 06/05/2018 Active % ophthalmic right eye 3 suspension (three) times dropsIndications: PCO daily. (posterior capsular opacification), right amLODIPine 10 mg Take 1 tablet by 15 tablet 0 08/21/2018 Active tabletIndications: mouth daily. Essential hypertension furosemide (LASIX) 20 Take 1 tablet by 30 tablet 3 09/05/2018 Active mg tabletIndications: mouth daily. Stage 3 chronic kidney disease timolol 0.5 % Place 1 Drop in 15 mL 3 09/17/2018 Active ophthalmic both eyes daily. solutionIndications: Primary open angle glaucoma of both eyes, unspecified glaucoma stage latanoprost 0.005 % Place 1 Drop in 2.5 mL 3 12/13/2018 Active ophthalmic both eyes at dropsIndications: bedtime. Primary open angle glaucoma of both eyes, unspecified glaucoma stage documented as of this encounter (statuses as of 01/03/2019) Active Problems Problem Noted Date Chest pain 01/16/2018 Hypertensive urgency 12/28/2017 Loss of weight 11/23/2017 Overview: Added automatically from request for surgery [id number] Mesenteric ischemia 11/16/2017 Overview: Chronicity unknown Nonocclusive mesenteric ischemia 11/15/2017 Generalized weakness 11/13/2017 Nuclear senile cataract of left eye 11/02/2017 Overview: Added automatically from request for surgery [id number] Chest pain, atypical 08/04/2017 Senile nuclear sclerosis, bilateral 06/13/2017 Overview: Added automatically from request for surgery [id number] Primary open angle glaucoma of both eyes, unspecified glaucoma stage 2017 Overview: Added automatically from request for surgery [id number] Pinguecula 09/19/2012 POAG (primary open-angle glaucoma) 07/13/2012 Overview: Both eyes Senile nuclear sclerosis 07/13/2012 Blepharitis of both eyes 07/13/2012 NO SHOW 05/09/2012 Angioedema 07/06/2009 Abdominal pain, right upper quadrant 06/26/2009 Cholelithiasis 06/13/2009 Diabetes mellitus type 2, uncontrolled, without complications 02/16/2009 Overview: ICD10 Diagnosis Term International Marketing Coordinator Utility Chronic kidney disease (CKD), stage II (mild) 01/08/2009 Other acute embolism veins 01/22/2008 Polyneuropathy in other diseases classified elsewhere 08/28/2007 Postmenopausal atrophic vaginitis 08/28/2007 Pain in limb 08/28/2007 Other ureteric obstruction 08/03/2007 Anxiety state 06/13/2007 Overview: ICD10 Diagnosis Term International Marketing Coordinator Utility Benign hypertensive heart disease without heart failure 06/13/2007 Hydronephrosis 03/13/2007 Glaucoma Dermatophytosis, nail Overview: all toenails documented as of this encounter (statuses as of 01/03/2019) Immunizations Name Administration Dates Next Due Influenza High Dose 03/07/2014 Influenza Virus Vaccine 07/23/2017, 04/09/2009, 06/13/2007 Pneumococcal 7 Conjugate, PCV7 (Prevnar7) 06/13/2007 documented as of this encounter Social History Tobacco Use Types Packs/Day Years Used Date Former Smoker Cigarettes 1 40 Quit: 02/26/2007 Smokeless Tobacco: Former User Alcohol Use Drinks/Week oz/Week Comments No heavy drinker until 3-4 years ago Sex Assigned at Date Recorded Not on file Job Start Date Occupation Industry Not on file Not on file Not on file Travel History Travel Start Travel End No recent travel history available. documented as of this encounter Last Filed Vital Signs Not on filedocumented in this encounter Plan of Treatment Date Type Specialty Care Team Description 01/03/2019 Office Visit Orthopedic Surgery Yesy Anderson DPM [address] [place] [address] 01/15/2019 Office Visit Ophthalmology Herbert Moreno MD [address] [place] [address] 10/29/2019 Office Visit Urology Khadijah Molina, SERVICE COORDINATOR [address] [address] [phone] Health Maintenance Due Date Last Done Comments DTaP,Tdap,and Td Vaccines (1 - 1961 Tdap) Zoster Recombinant Vaccine 1992 (SHINGRIX) (1 of 2) LUNG CANCER SCREEN: Recommended 1997 for age 55-80 with 30 + pack year history Medicare Wellness Visit 2007 Osteoporosis Screening 2007 PNEUMOCOCCAL VACCINES 65+ (1 of 2 2007 - PCV13) HgA1C 05/16/2018 11/14/2017, 08/04/2017, 01/22/2015, Additional history exists LDL-C 12/13/2018 12/13/2017, 01/30/2013, 09/05/2012, Additional history exists FOOT EXAM 12/25/2018 12/25/2017 URINE MICROALBUMIN 12/25/2018 12/25/2017, 09/05/2012, 09/14/2011, Additional history exists INFLUENZA VACCINE 01/27/2019 07/23/2017, 03/07/2014, 04/09/2009, Additional history exists EYE EXAM 06/21/2019 06/21/2018, 06/05/2018, 05/08/2018, Additional history exists CREATININE (SERUM) 09/06/2019 09/05/2018, 02/23/2018, 02/21/2018, Additional history exists documented as of this encounter Implants Implanted Type Area Blindstitch Lapel Padder Device Shelf Model / Serial Identifier Expiration / Lot Date Lens, Cayetano #Sn60wf 23.0d - [id number] LENS Right: Cayetano 02/25/2021 SN60WF 23.0D / Implanted: Qty: 1 on 07/05/2017 by Herbert Moreno MD at [facility] Eye [id number] / 0000 Lens, Cayetano #Sn60wf - [id number] LENS Left: Eye Cayetano 08/26/2022 SN60WF / Implanted: Qty: 1 on 12/19/2017 by Herbert Moreno MD at [facility] [id number] / 0000 documented as of this encounter Procedures Procedure Name Priority Date/Time Associated Diagnosis Comments NO SHOW OR MISSED Routine 01/03/2019 12:49 PM APPOINTMENT POLICY CDT ACKNOWLEDGEMENT documented in this encounter Results Not on filedocumented in this encounter Insurance Payer Benefit Plan / Subscriber ID Effective Dates Phone Address Type Group MEDICARE MEDICARE PART xxxxxxxxxxx 2007-Presazael [phone] [address] Medicare A & B [id number] [place] [phone] [facility] MEDICAID OF xxxxxxxxx 2017-Omaira [phone] [address] Medicaid [place] t 0 [id number] [place] [address] documented as of this encounter Advance Directives Type Date Recorded Patient Chairman & Chief Executive Officer Explanation Advance Directives and Living Will Power of Food Preservation Scientist 03/20/2013 10:20 AM Name Relationship Healthcare Agent Relationship Communication Joslyn Cuello Child Primary healthcare agent
--- OUTSIDE RECORDS SUMMARY | 2019-08-06 12:40 | XMS REPORT | Summary of Care ---
:1940 Author Organization [facility] Address [address] [place] [address] Care Team Providers Name Role Phone Yovani Laurent MD Primary Care Provider Reason for Visit Reason Comments Follow-up Encounter Details Date Type Department Care Team Description 01/03/2019 Office Visit [facility] Yesy Anderson Pain due to onychomycosis of toenails of both feet (Primary Dx); Orthopaedic Surgery- TALHA Cortez Comprehensive diabetic foot examination, type 2 DM, encounter for; [address] Diabetes mellitus due to underlying condition with diabetic neuropathy, without long-term current use of insulin [address] [address] [place] [address] [phone] Allergies Active Allergy Reactions Severity Noted Date [...] Overview: Added automatically from request for surgery [id number] Mesenteric ischemia 11/16/2017 Overview: Chronicity unknown Nonocclusive mesenteric ischemia 11/15/2017 Generalized weakness 11/13/2017 Nuclear senile cataract of left eye 11/02/2017 Overview: Added automatically from request for surgery [id number] Chest pain, atypical 08/04/2017 Senile nuclear sclerosis, bilateral 06/13/2017 Overview: Added automatically from request for surgery [id number] Primary open angle glaucoma of both eyes, unspecified glaucoma stage 2017 Overview: Added automatically from request for surgery [id number] Pinguecula 09/19/2012 POAG (primary open-angle glaucoma) 07/13/2012 Overview: Both eyes Senile nuclear sclerosis 07/13/2012 Blepharitis of both eyes 07/13/2012 NO SHOW 05/09/2012 Angioedema 07/06/2009 Abdominal pain, right upper quadrant 06/26/2009 Cholelithiasis 06/13/2009 Diabetes mellitus type 2, uncontrolled, without complications 02/16/2009 Overview: ICD10 Diagnosis Term Conference Planning Manager Utility Chronic kidney disease (CKD), stage II (mild) 01/08/2009 Other acute embolism veins 01/22/2008 Polyneuropathy in other diseases classified elsewhere 08/28/2007 Postmenopausal atrophic vaginitis 08/28/2007 Pain in limb 08/28/2007 Other ureteric obstruction 08/03/2007 Anxiety state 06/13/2007 Overview: ICD10 Diagnosis Term Conference Planning Manager Utility Benign hypertensive heart disease without heart [...] of this encounter Last Filed Vital Signs Vital Sign Reading Time Taken Comments Blood Pressure - - Pulse - - Temperature 36.7 C (98 F) 01/03/2019 1:04 PM CDT Respiratory Rate - - Oxygen Saturation - - Inhaled Oxygen Concentration - - Weight 63.5 kg (140 lb 1.6 oz) 01/03/2019 1:04 PM CDT Height - - Body Mass Index 22.61 10/25/2018 2:09 PM CDT documented in this encounter Progress Notes Yesy Anderson DPM - 01/03/2019 1:00 PM CDT CHIEF COMPLAINT: painful elongated toenails HISTORY OF PRESENT ILLNESS: Scarlet Celeste is a 78 year old female who complains of painful elongated toenails, both feet. Patient has significant history of Type 2 NIDDM and presents to clinic for diabetic foot evaluation. Patient denies history of pedal amputations or ulcerations. [facility] 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 2.5 mL 3 timolol 0.5 % ophthalmic solution Place 1 Drop in both eyes daily. 15 mL 3 furosemide (LASIX) 20 mg tablet Take 1 tablet by mouth daily. 30 tablet 3 amLODIPine 10 mg tablet Take 1 tablet by mouth daily. 15 tablet 0 prednisoLONE acetate 1 % ophthalmic suspension drops Place 1 Drop in right eye 3 (three) times daily. 5 mL 1 SERTraline 25 mg tablet Take 1 tablet by mouth daily. 30 tablet 0 blood sugar diagnostic (EtohumTOUCH ULTRA BLUE TEST STRIP) strip Test sugars once daily. E11.65 100 Strip 2 loteprednol (LOTEMAX) 0.5 % ophthalmic suspension drops Place 1 Drop in left eye 2 (two) times daily. Morning and bedtime 5 mL 0 sodium,potassium,mag sulfates (SUPREP BOWEL PREP KIT) 17.5-3.13-1.6 gram SolR Use as directed prior to colonoscopy. 1 Box 0 magnesium oxide 400 mg tablet Take 1 tablet by mouth daily. 30 tablet 0 ALPRAZolam 0.5 mg tablet Take 0.5 mg by mouth 3 (three) times daily. isosorbide mononitrate 60 mg 24 hr tablet Take 1 tablet by mouth daily. 90 tablet 3 gabapentin 300 mg capsule Take 1 capsule by mouth at bedtime. 90 capsule 1 metFORMIN 1,000 mg tablet Take 1 tablet by mouth 2 (two) times daily with meals. 180 tablet 1 pantoprazole 40 mg EC tablet TAKE BY MOUTH 1 TABLET DAILY 90 tablet 3 ASPIRIN 81 MG ORAL TAB None Entered No current facility-administered medications for this visit. Social History Tobacco Use Smoking status: Former Smoker Packs/day: 1.00 Years: 40.00 Pack years: 40.00 Types: Cigarettes Last attempt to quit: 02/26/2007 Years since quittin.8 Smokeless tobacco: Former User Substance Use Topics Alcohol use: No Comment: heavy drinker until 3-4 years ago Allergies Allergen Reactions Clay Inhibitors Swelling SEVERE ANGIOEDEMA Hydralazine Anaphylaxis Iodine Dizziness, Hives, Palpitations and Shortness of Breath Iron Anaphylaxis Lisinopril Swelling Penicillin [Penicillins] Hives POCT HBA1C (%) Date Value 01/22/2015 8.7 (A) 04/07/2014 9.4 (A) No components found for: A1C LOWER EXTREMITY PHYSICAL EXAM: LOWER EXTREMITY PHYSICAL EXAM: Vasc: Pedal pulses palpable with 2/4 Dorsalis Pedis/Posterior Tibial bilaterally. Temp grad WNL zenaida. CFT < 3 sec zenaida. Few varicosities noted Claudication:no Temperature changes: no Edema: mild Erythema: yes Neuro: Epicritic sensations diminished bilaterally. Protective threshold diminished bilaterally per [place] Devika Monofilament. Paresthesia: yes Burning: yes Derm: Integument with normal turgor, texture and color and appears intact with no primary or secondary skin lesions. Interdigital maceration not noted. Nails are elongated, hypertrophic, discolored, dystropic and incurvated with subungual debris for toenails 1-5 bilaterally Absent/decreased hair growth: yes Skin discoloration: yes Thin shiny skin: yes Erythematous skin: yes MSK: No pedal deformities noted. ROM of AJ/STJ/MTPJ WNL with no pain or crepitus. All DF/PF/INV/EV muscle groups grossly intact with 5/5 muscle strength bilaterally ASSESSMENT: ICD-10-CM ICD-9-CM 1. Pain due to onychomycosis of toenails of both feet B35.1 110.1 M79.675 729.5 M79.674 2. Comprehensive diabetic foot examination, type 2 DM, encounter for E11.9 250.00 3. Diabetes mellitus due to underlying condition with diabetic neuropathy, without long-term currentuse of insulin E08.40 249.60 357.2 PLAN: Patient evaluated and examined today Pt educated in detail on diabetic foot care Educational handout given to patient today in clinic to take home Nails sharply debrided in length and thickness x 10 without incident Monitor skin closely for skin breakdown or signs of infection Pt to RTC in [address] Gil in [place] Mistyibazael's Attestation Michael Larson , am scribing for, and in the presence of, Yesy Anderson DPM who performed the services described here-in. Michael Cast, January 03, 2019, 1:08 PM Physician's Attestation IYesy DPM, personally performed and/or ordered the services described in this documentation made by the Scribe in my presence, and it is both accurate and complete. All medical record entries made by the Scribe were at my direction and personally dictated by me. I have reviewed the chart and agree that the record accurately reflects my personal performance of the history , physical exam, assessment and plan. Yesy Anderson DPM Lining Cleaner [facility] Medicine [facility] Surgery Department of Orthopaedic Surgery & Rehabilitation 01/03/19 1:18 PM documented in this encounter Plan of Treatment Date Type Specialty Care Team Description 01/15/2019 Office Visit Ophthalmology Herbert Moreno MD [address] [place] [phone] 04/05/2019 Office Visit Orthopedic Surgery Deysi Gil DPM [address] [place], [place] [address] 10/29/2019 Office Visit Urology Khadijah Molina FNP [address] [address] Health Maintenance Due Date Last Done Comments [...] of this encounter Implants Implanted Type Area Process Manager Device Shelf Model / Serial Identifier Expiration / Lot Date Lens, Cayetano #Sn60wf 23.0d - [id number] LENS Right: [employer] 02/25/2021 SN60WF 23.0D / Implanted: Qty: 1 on 07/05/2017 by Herbert Moreno MD at [facility] Eye [id number] / 0000 Lens, Cayetano #Sn60wf - [id number] LENS Left: Eye [employer]etano 08/26/2022 SN60WF / Implanted: Qty: 1 on 12/19/2017 by Herbert Moreno MD at [facility] [id number] / 0000 documented as of this encounter Results Not on filedocumented in this encounter Visit Diagnoses Diagnosis Pain due to onychomycosis of toenails of both feet - Primary Comprehensive diabetic foot examination, type 2 DM, encounter for Diabetes mellitus due to underlying condition with diabetic neuropathy, without long-term current use of insulin documented in this encounter Insurance Payer Benefit Plan / Subscriber ID Effective Dates Phone Address Type Group MEDICARE MEDICARE PART xxxxxxxxxxx 2007-Sarah [phone] [address] Medicare A & B nt 2 [id number] [place] [address] [facility] MEDICAID OF xxxxxxxxx 2017-Omaira [phone] [address] Medicaid [place] t 0 [id number] [place] [address] [phone] [id number] (Work) documented as of this encounter Advance Directives Type Date Recorded Patient Resource Development Manager Explanation Advance Directives and Living Will Power of Compilation Clerk 03/20/2013 10:20 AM Name Relationship Healthcare Agent Relationship Communication Joslyn Cuello Child Primary healthcare agent
--- OUTSIDE RECORDS SUMMARY | 2019-08-06 12:40 | XMS REPORT | Summary of Care ---
:1940 Author Organization [facility] Address [address] [place] [address] Care Team Providers Name Role Phone Yovani Laurent MD Primary Care Provider Reason for Visit Reason Comments GLAUCOMA Encounter Details Date Type Department Care Team Description 01/25/2019 Office Visit [facility] Eye Herbert Moreno, Primary open angle glaucoma of both eyes, unspecified glaucoma stage (Primary Dx); Ethan MARIE Pseudophakia of right eye; [address] [place] [address]. [address] [place] [address] Pseudophakia of left eye; [place] [address] Dry eye; [address] Squamous blepharitis of upper and lower eyelids of both eyes [phone] Allergies Active Allergy Reactions Severity Noted Date Comments Clay Inhibitors Swelling 07/06/2009 SEVERE ANGIOEDEMA Hydralazine Anaphylaxis 11/16/2017 Iodine Dizziness, Hives, Palpitations, 11/16/2017 Shortness of Breath Iron Anaphylaxis 03/13/2007 Lisinopril Swelling 07/29/2017 Penicillins Hives 02/01/2007 documented as of this encounter (statuses as of 01/25/2019) Medications Medication Sig Dispensed Refills Start Date [...] as of this encounter (statuses as of 01/25/2019) Active Problems Problem Noted Date Chest pain 01/16/2018 Hypertensive urgency 12/28/2017 Loss of weight 11/23/2017 Overview: Added automatically from request for surgery [id number] Mesenteric ischemia 11/16/2017 Overview: Chronicity unknown Nonocclusive mesenteric ischemia 11/15/2017 Generalized weakness 11/13/2017 Nuclear senile cataract of left eye 11/02/2017 Overview: Added automatically from request for surgery [id number] Chest pain, atypical 08/04/2017 Senile nuclear sclerosis, bilateral 06/13/2017 Overview: Added automatically from request for surgery [id number] Primary open angle glaucoma of both eyes, unspecified glaucoma stage 2017 Overview: Added automatically from request for surgery [id number] Pinguecula 09/19/2012 POAG (primary open-angle glaucoma) 07/13/2012 Overview: Both eyes Senile nuclear sclerosis 07/13/2012 Blepharitis of both eyes 07/13/2012 NO SHOW 05/09/2012 Angioedema 07/06/2009 Abdominal pain, right upper quadrant 06/26/2009 Cholelithiasis 06/13/2009 Diabetes mellitus type 2, uncontrolled, without complications 02/16/2009 Overview: ICD10 Diagnosis Term Paralegal Internship Utility Chronic kidney disease (CKD), stage II (mild) 01/08/2009 Other acute embolism veins 01/22/2008 Polyneuropathy in other diseases classified elsewhere 08/28/2007 Postmenopausal atrophic vaginitis 08/28/2007 Pain in limb 08/28/2007 Other ureteric obstruction 08/03/2007 Anxiety state 06/13/2007 Overview: ICD10 Diagnosis Term Paralegal Internship Utility Benign hypertensive heart disease without heart failure 06/13/2007 Hydronephrosis 03/13/2007 Glaucoma Dermatophytosis, nail Overview: all toenails documented as of this encounter (statuses as of 01/25/2019) Immunizations Name Administration Dates Next Due Influenza [...] Pressure - - Pulse - - Temperature - - Respiratory Rate - - Oxygen Saturation - - Inhaled Oxygen Concentration - - Weight 63.5 kg (140 lb) 01/25/2019 1:15 PM CDT Height - - Body Mass Index 22.6 10/25/2018 2:09 PM CDT documented in this encounter Patient Instructions Patient InstructionsHerbert Moreno MD - 01/25/2019 1:45 PM CDTPt educated and instructed on the use of drops. Pt to continue drops as prescribed. Pt to call the office and/or check in the ED if decreased vision, pain or other vision related symptoms arise. Otherwise pt to return in 3 months. documented in this encounter Progress Notes Herbert Moreno MD - 01/25/2019 1:45 PM CDT Cc: GLAUCOMA Scarlet Celeste is a 78 year old female. Concerned about IOP and glaucoma both eyes. No changes invision either eye. 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 Assessment ICD-10-CM ICD-9-CM 1. Primary open angle glaucoma of both eyes, unspecified glaucoma stage H40.1130 365.11 365.70 2. Pseudophakia of right eye Z96.1 V43.1 3. Pseudophakia of left eye Z96.1 V43.1 4. Dry eye H04.129 375.15 5. Squamous blepharitis of upper and lower eyelids of both eyes H01.02A 373.02 H01.02B Lorin Novak was seen today for glaucoma. Diagnoses and all orders for this visit: Primary open angle glaucoma of both eyes, unspecified glaucoma stage IOP satisfactory today both eyes. Pt educated, discussed options. Continue with Jerod Qam OU and Latanoprost QHS OU. OCT is stable both eyes today as per GPA Follow-up for risk of progression Pseudophakia of right eye RD precautions. Rx glasses today Pseudophakia of left eye RD precautions PCO (posterior capsular opacification), right Looks excellent RD precautions Dry eye AT's Blepharitis both eyes Lid scrubs Review in 3-4 months for IOP check, HVF both eyes Minoo temple - 01/25/2019 1:45 PM CDTCirrus RNFL OCT done OU today. Minoo Gutierrez 01/25/2019 1:17 PM documented in this encounter Plan of Treatment Date Type Specialty Care Team Description 04/05/2019 Office Visit Orthopedic Surgery Deysi Gil DPM [address] [place] [address] 04/30/2019 Office Visit Ophthalmology Herbert Moreno MD [address] [place] [address] 10/29/2019 Office Visit Urology Khadijah Molina FNP [address] [address] Health Maintenance Due Date Last Done Comments [...] 09/05/2012, 09/14/2011, Additional history exists INFLUENZA VACCINE (#1) 2019 07/23/2017, 03/07/2014, 04/09/2009, Additional history exists EYE EXAM 06/21/2019 06/21/2018, 06/05/2018, 05/08/2018, Additional history exists CREATININE (SERUM) 09/06/2019 09/05/2018, 02/23/2018, 02/21/2018, Additional history exists documented as of this encounter Implants Implanted Type Area Surgical Instrument Technician Device Shelf Model / Serial Identifier Expiration / Lot Date Lens, Cayetano #Sn60wf 23.0d - [id number] LENS Right: Cayetano 02/25/2021 SN60WF 23.0D / Implanted: Qty: 1 on 07/05/2017 by Herbert Moreno MD at [facility] Eye [id number] / 0000 Lens, Cayetano #Sn60wf - [id number] LENS Left: Eye Cayetano 08/26/2022 SN60WF / Implanted: Qty: 1 on 12/19/2017 by Herbert Moreno MD at [facility] [id number] / 0000 documented as of this encounter Procedures Procedure Name Priority Date/Time Associated Diagnosis Comments OU CIRRUS OCT OPTIC Routine 01/25/2019 Primary open angle Results for this NERVE, BOTH EYES glaucoma of both eyes, procedure are in the (35778) unspecified glaucoma results section. stage documented in this encounter Results OU CIRRUS OCT OPTIC NERVE, BOTH EYES (42930) (01/25/2019) Impressions Performed At OCT good ss both eyes.WNL OD, ONL OS. POAG OS>OD, GPA appears stable both eyes documented in this encounter Visit Diagnoses Diagnosis Primary open angle glaucoma of both eyes, unspecified glaucoma stage - Primary Pseudophakia of right eye Lens replaced by other means Pseudophakia of left eye Lens replaced by other means Dry eye Squamous blepharitis of upper and lower eyelids of both eyes documented in this encounter Insurance Payer Benefit Plan / Subscriber ID Effective Dates Phone Address Type Group MEDICARE MEDICARE PART xxxxxxxxxxx 2007-Sarah [phone] [address] Medicare A & B nt 2 [id number] [place] [id number] [facility] MEDICAID OF xxxxxxxxx 2017-Omaira [id number] Medicaid [place] t 0 [id number] [place] [address] [phone] [id number] (Work) documented as of this encounter Advance Directives Type Date Recorded Patient Supervisor Fabrication And Assembly Explanation Advance Directives and Living Will Power of Ring Conductor 03/20/2013 10:20 AM Name Relationship Healthcare Agent Relationship Communication Joslyn Cuello Child Primary healthcare agent
--- OUTSIDE RECORDS SUMMARY | 2019-08-06 12:40 | XMS REPORT | Summary of Care ---
:1940 Author Organization [facility] Address [address] [place] [address] Care Team Providers Name Role Phone Yovani Laurent MD Primary Care Provider Reason for Visit Reason Comments Follow-up Encounter Details Date Type Department Care Team Description 01/03/2019 Office Visit [facility] Yesy Anderson Pain due to onychomycosis of toenails of both feet (Primary Dx); Orthopaedic Surgery- TALHA Cortez Comprehensive diabetic foot examination, type 2 DM, encounter for; [address] Diabetes mellitus due to underlying condition with diabetic neuropathy, without long-term current use of insulin [address] [address] JILL Jerome [address] [phone] Allergies Active Allergy Reactions Severity Noted Date [...] Overview: Added automatically from request for surgery [id number] Mesenteric ischemia 11/16/2017 Overview: Chronicity unknown Nonocclusive mesenteric ischemia 11/15/2017 Generalized weakness 11/13/2017 Nuclear senile cataract of left eye 11/02/2017 Overview: Added automatically from request for surgery [id number] Chest pain, atypical 08/04/2017 Senile nuclear sclerosis, bilateral 06/13/2017 Overview: Added automatically from request for surgery [id number] Primary open angle glaucoma of both eyes, unspecified glaucoma stage 2017 Overview: Added automatically from request for surgery [id number] Pinguecula 09/19/2012 POAG (primary open-angle glaucoma) 07/13/2012 Overview: Both eyes Senile nuclear sclerosis 07/13/2012 Blepharitis of both eyes 07/13/2012 NO SHOW 05/09/2012 Angioedema 07/06/2009 Abdominal pain, right upper quadrant 06/26/2009 Cholelithiasis 06/13/2009 Diabetes mellitus type 2, uncontrolled, without complications 02/16/2009 Overview: ICD10 Diagnosis Term Animation Director Utility Chronic kidney disease (CKD), stage II (mild) 01/08/2009 Other acute embolism veins 01/22/2008 Polyneuropathy in other diseases classified elsewhere 08/28/2007 Postmenopausal atrophic vaginitis 08/28/2007 Pain in limb 08/28/2007 Other ureteric obstruction 08/03/2007 Anxiety state 06/13/2007 Overview: ICD10 Diagnosis Term Animation Director Utility Benign hypertensive heart disease without heart [...] [facility] RE[facility] OF SYSTEMS: (-)=Negative; (+)=Positive [...] daily. 30 tablet 0 blood sugar diagnostic (TapCanvasTOUCH ULTRA BLUE TEST STRIP) strip Test sugars [...] diminished bilaterally. Protective threshold diminished bilaterally per [place] Devika Monofilament. Paresthesia: yes Burning: yes Derm: [...] in [address] Gil in [place] Mistyib[facility]'s Attestation Michael Larson , am scribing [...] exam, assessment and plan. Yesy Anderson DPM Gauge Machine Operator Podiatric Medicine and Surgery Department of Orthopaedic Surgery & Rehabilitation 01/03/19 1:18 PM documented in this encounter Plan of Treatment Date Type Specialty Care Team Description 01/15/2019 Office Visit Ophthalmology Herbert Moreno MD [address] [place] [id number] 04/05/2019 Office Visit Orthopedic Surgery Deysi Gil DPM [address] [place], [place] [address] 10/29/2019 Office Visit Urology Khadijah Molina FNP [address] [address] Health Maintenance Due Date Last Done Comments [...] of this encounter Implants Implanted Type Area Coal Washer Tender Device Shelf Model / Serial Identifier Expiration / Lot Date Lens, Cayetano #Sn60wf 23.0d - [id number] LENS Right: Cayetano 02/25/2021 SN60WF 23.0D / Implanted: Qty: 1 on 07/05/2017 by Herbert Moreno MD at [facility] Eye [id number] / 0000 Lens, Cayetano #Sn60wf - [id number] LENS Left: Eye Cayetano 08/26/2022 SN60WF / Implanted: Qty: 1 on 12/19/2017 by Herbert Moreno MD at [facility] [id number] / 0000 documented as of this encounter [...] BOX Medicare A & B nt 2 [id number] [place] [address] [facility] MEDICAID OF xxxxxxxxx 2017-Omaira [phone] [address] Medicaid [place] t 0 [id number] [place] [address] [phone] (Work) documented as of this encounter Advance Directives Type Date Recorded Patient Pearl Diver Explanation Advance Directives and Living Will Power of Supervisor Research Kennel 03/20/2013 10:20 AM Name Relationship Healthcare Agent Relationship Communication Joslyn Cuello Child Primary healthcare agent
--- OUTSIDE RECORDS SUMMARY | 2019-08-06 12:41 | XMS REPORT | Summary of Care ---
:1940 Author Organization [facility] Address [address] [place] [address] Care Team Providers Name Role Phone Yovani Laurent MD Primary Care Provider Reason for Visit Reason Comments GLAUCOMA Encounter Details Date Type Department Care Team Description 01/25/2019 Office Visit [facility] Eye Herbert Moreno, Primary open angle glaucoma of both eyes, unspecified glaucoma stage (Primary Dx); Ethan MARIE Pseudophakia of right eye; [address] [place] [address]. [address] [place] [address] Pseudophakia of left eye; [place] [address] Dry eye; [address] Squamous blepharitis of upper and lower eyelids of both eyes [phone] Allergies Active Allergy Reactions Severity Noted Date [...] Overview: Added automatically from request for surgery [id number] Mesenteric ischemia 11/16/2017 Overview: Chronicity unknown Nonocclusive mesenteric ischemia 11/15/2017 Generalized weakness 11/13/2017 Nuclear senile cataract of left eye 11/02/2017 Overview: Added automatically from request for surgery [id number] Chest pain, atypical 08/04/2017 Senile nuclear sclerosis, bilateral 06/13/2017 Overview: Added automatically from request for surgery [id number] Primary open angle glaucoma of both eyes, unspecified glaucoma stage 2017 Overview: Added automatically from request for surgery [id number] Pinguecula 09/19/2012 POAG (primary open-angle glaucoma) 07/13/2012 Overview: Both eyes Senile nuclear sclerosis 07/13/2012 Blepharitis of both eyes 07/13/2012 NO SHOW 05/09/2012 Angioedema 07/06/2009 Abdominal pain, right upper quadrant 06/26/2009 Cholelithiasis 06/13/2009 Diabetes mellitus type 2, uncontrolled, without complications 02/16/2009 Overview: ICD10 Diagnosis Term Habilitation Worker Utility Chronic kidney disease (CKD), stage II (mild) 01/08/2009 Other acute embolism veins 01/22/2008 Polyneuropathy in other diseases classified elsewhere 08/28/2007 Postmenopausal atrophic vaginitis 08/28/2007 Pain in limb 08/28/2007 Other ureteric obstruction 08/03/2007 Anxiety state 06/13/2007 Overview: ICD10 Diagnosis Term Habilitation Worker Utility Benign hypertensive heart disease without heart [...] of Systems Reviewed ROS done by the body and frame technician during this encounter and there are [...] Visit Orthopedic Surgery Deysi Gil DPM [address] [place] [address] 04/30/2019 Office Visit Ophthalmology Herbert Moreno MD [address] [place] [address] 10/29/2019 Office Visit Urology Khadijah Molina FNP [address] [address] Health Maintenance Due Date Last [...] of this encounter Implants Implanted Type Area Warehouse Shipping Associate Device Shelf Model / Serial Identifier Expiration / Lot Date Lens, Cayetano #Sn60wf 23.0d - [id number] LENS Right: Cayetano 02/25/2021 SN60WF 23.0D / Implanted: Qty: 1 on 07/05/2017 by Herbert Moreno MD at [facility] Eye [id number] / 0000 Lens, Cayetano #Sn60wf - [id number] LENS Left: Eye Cayetano 08/26/2022 SN60WF / Implanted: Qty: 1 on 12/19/2017 by Herbert Moreno MD at [facility] [id number] / 0000 documented as of this encounter Procedures Procedure Name Priority Date/Time Associated Diagnosis Comments OU CIRRUS OCT OPTIC Routine 01/25/2019 Primary open angle Results for this NERVE, BOTH EYES glaucoma of both eyes, procedure are in the (30970) unspecified glaucoma results section. stage documented in this encounter Results OU CIRRUS OCT OPTIC NERVE, BOTH EYES (47553) (01/25/2019) Impressions Performed At OCT good ss [...] Type Group MEDICARE MEDICARE PART xxxxxxxxxxx 2007-Sarah [phone] [address] Medicare A & B nt 2 [id number] [place] [address] [facility] MEDICAID OF xxxxxxxxx 2017-Omaira [id number] [address] Medicaid [place] t 0 [id number] [place] [address] [phone] [id number] (Work) documented as of this encounter Advance Directives Type Date Recorded Patient Apartment Rental Agent Explanation Advance Directives and Living Will Power of Manager Imaging 03/20/2013 10:20 AM Name Relationship Healthcare Agent Relationship Communication Joslyn Cuello Child Primary healthcare agent
--- OUTSIDE RECORDS SUMMARY | 2019-08-06 12:41 | XMS REPORT | Summary of Care ---
:1940 Author Organization [facility] Address [address] [place] [address] Care Team Providers Name Role Phone Yovani Laurent MD Primary Care Provider Encounter Details Date Type Department Care Team Description 01/25/2019 Orders Only [facility] Doctor Unassigned, No [address] [facility] [address] [address] [place] [address] Allergies Active Allergy Reactions Severity Noted Date [...] Overview: Added automatically from request for surgery [id number] Mesenteric ischemia 11/16/2017 Overview: Chronicity unknown Nonocclusive mesenteric ischemia 11/15/2017 Generalized weakness 11/13/2017 Nuclear senile cataract of left eye 11/02/2017 Overview: Added automatically from request for surgery [id number] Chest pain, atypical 08/04/2017 Senile nuclear sclerosis, bilateral 06/13/2017 Overview: Added automatically from request for surgery [id number] Primary open angle glaucoma of both eyes, unspecified glaucoma stage 2017 Overview: Added automatically from request for surgery [id number] Pinguecula 09/19/2012 POAG (primary open-angle glaucoma) 07/13/2012 Overview: Both eyes Senile nuclear sclerosis 07/13/2012 Blepharitis of both eyes 07/13/2012 NO SHOW 05/09/2012 Angioedema 07/06/2009 Abdominal pain, right upper quadrant 06/26/2009 Cholelithiasis 06/13/2009 Diabetes mellitus type 2, uncontrolled, without complications 02/16/2009 Overview: ICD10 Diagnosis Term Rn Hemodialysis Charge Utility Chronic kidney disease (CKD), stage II (mild) 01/08/2009 Other acute embolism veins 01/22/2008 Polyneuropathy in other diseases classified elsewhere 08/28/2007 Postmenopausal atrophic vaginitis 08/28/2007 Pain in limb 08/28/2007 Other ureteric obstruction 08/03/2007 Anxiety state 06/13/2007 Overview: ICD10 Diagnosis Term Rn Hemodialysis Charge Utility Benign hypertensive heart disease without heart [...] Visit Orthopedic Surgery Deysi Gil DPM [address] [place] [address] 04/30/2019 Office Visit Ophthalmology Herbert Moreno MD [address] [place] [address] 10/29/2019 Office Visit Urology Khadijah Molina, ICE CREAM SERVER [address] [address] [phone] Health Maintenance Due Date Last Done Comments [...] of this encounter Implants Implanted Type Area In Home Tutor Device Shelf Model / Serial Identifier Expiration / Lot Date Lens, Cayetano #Sn60wf 23.0d - [id number] LENS Right: Cayetano 02/25/2021 SN60WF 23.0D / Implanted: Qty: 1 on 07/05/2017 by Herbert Moreno MD at [facility] Eye [id number] / 0000 Lens, Cayetano #Sn60wf - [id number] LENS Left: Eye Cayetano 08/26/2022 SN60WF / Implanted: Qty: 1 on 12/19/2017 by Herbert Moreno MD at [facility] [id number] / 0000 documented as of this encounter Procedures Procedure Name Priority Date/Time Associated Diagnosis Comments OPHTHALMOLOGY DIAGNOSTIC Routine 01/25/2019 12:01 AM TEST CDT documented in this encounter Results Not on filedocumented in this encounter Insurance Payer Benefit Plan / Subscriber ID Effective Dates Phone Address Type Group MEDICARE MEDICARE PART xxxxxxxxxxx 2007-Prese [phone] [address] Medicare A & B nt 2 [id number] [place] [id number] [facility] MEDICAID OF xxxxxxxxx 2017-Presen [phone] [address] Medicaid [place] t 0 [id number] [place] [address] documented as of this encounter Advance Directives Type Date Recorded Patient Water Resources Engineer Explanation Advance Directives and Living Will Power of Panel Raiser Operator 03/20/2013 10:20 AM Name Relationship Healthcare Agent Relationship Communication Joslyn Cuello Child Primary healthcare agent
--- OUTSIDE RECORDS SUMMARY | 2019-08-06 12:41 | XMS REPORT | Summary of Care ---
:1940 Author Organization [facility] Address [address] [place] [address] Care Team Providers Name Role Phone Yovani Laurent MD Primary Care Provider Reason for Visit Reason Comments Refill Request Encounter Details Date Type Department Care Team Description 06/25/2019 Refill [facility] Eye NabilHemant tellez MD Refill Request Center[address] [id number] [address] [place] [address] [place] [phone] Allergies Active Allergy Reactions Severity Noted Date Comments Clay Inhibitors Swelling 07/06/2009 SEVERE ANGIOEDEMA Hydralazine Anaphylaxis 11/16/2017 Iodine Dizziness, Hives, Palpitations, 11/16/2017 Shortness of Breath Iron Anaphylaxis 03/13/2007 Lisinopril Swelling 07/29/2017 Penicillins Hives 02/01/2007 documented as of this encounter (statuses as of 06/25/2019) Medications Medication Sig Dispensed Refills Start Date End Date Status ASPIRIN 81 MG ORAL None Entered 0 Active TAB gabapentin 300 mg Take 1 capsule 90 capsule 1 12/13/2017 Active capsule by mouth at bedtime. metFORMIN 1,000 mg Take 1 tablet 180 tablet 1 12/13/2017 Active tablet by mouth 2 (two) times daily with meals. pantoprazole 40 mg TAKE BY MOUTH 90 tablet 3 12/13/2017 Active EC tablet 1 TABLET DAILY ALPRAZolam 0.5 mg Take 0.5 mg by 0 Active tablet mouth 3 (three) times daily. isosorbide Take 1 tablet 90 tablet 3 01/30/2018 Active mononitrate 60 mg by mouth 24 hr daily. tabletIndications: Essential hypertension magnesium oxide Take 1 tablet 30 tablet 0 02/21/2018 Active 400 mg tablet by mouth daily. sodium,potassium,m Use as 1 Box 0 03/09/2018 Active ag sulfates directed prior (SUPREP BOWEL PREP to KIT) 17.5-3.13-1.6 colonoscopy. gram SolR loteprednol Place 1 Drop 5 mL 0 03/29/2018 Active (LOTEMAX) 0.5 % in left eye 2 ophthalmic (two) times suspension drops daily. Morning and bedtime blood sugar Test sugars 100 Strip 2 05/01/2018 Active diagnostic once daily. (Siluria TechnologiesUCH ULTRA E11.65 BLUE TEST STRIP) strip SERTraline 25 mg Take 1 tablet 30 tablet 0 05/12/2018 Active tablet by mouth daily. prednisoLONE Place 1 Drop 5 mL 1 06/05/2018 Active acetate 1 % in right eye 3 ophthalmic (three) times suspension daily. dropsIndications: PCO (posterior capsular opacification), right amLODIPine 10 mg Take 1 tablet 15 tablet 0 08/21/2018 Active tabletIndications: by mouth Essential daily. hypertension furosemide (LASIX) Take 1 tablet 30 tablet 3 09/05/2018 Active 20 mg by mouth tabletIndications: daily. Stage 3 chronic kidney disease timolol 0.5 % Place 1 Drop 15 mL 3 04/30/2019 Active ophthalmic in both eyes solutionIndication daily. s: Primary open angle glaucoma of both eyes, unspecified glaucoma stage LATANOPROST 0.005 INSITLL 1 DROP 2.5 mL 4 06/25/2019 Active % ophthalmic IN BOTH EYES dropsIndications: AT BEDTIME Primary open angle glaucoma of both eyes, unspecified glaucoma stage latanoprost 0.[address] Place 1 Drop 2.5 mL 3 04/30/2019 06/25/2019 Discontinued % ophthalmic in both eyes dropsIndications: at bedtime. Primary open angle glaucoma of both eyes, unspecified glaucoma stage documented as of this encounter (statuses as of 06/25/2019) Active Problems Problem Noted Date Chest pain 01/16/2018 Hypertensive urgency 12/28/2017 Loss of weight 11/23/2017 Overview: Added automatically from request for surgery [id number] Mesenteric ischemia 11/16/2017 Overview: Chronicity unknown Nonocclusive mesenteric ischemia 11/15/2017 Generalized weakness 11/13/2017 Nuclear senile cataract of left eye 11/02/2017 Overview: Added automatically from request for surgery [id number] Chest pain, atypical 08/04/2017 Senile nuclear sclerosis, bilateral 06/13/2017 Overview: Added automatically from request for surgery [id number] Primary open angle glaucoma of both eyes, unspecified glaucoma stage 2017 Overview: Added automatically from request for surgery [id number] Pinguecula 09/19/2012 POAG (primary open-angle glaucoma) 07/13/2012 Overview: Both eyes Senile nuclear sclerosis 07/13/2012 Blepharitis of both eyes 07/13/2012 NO SHOW 05/09/2012 Angioedema 07/06/2009 Abdominal pain, right upper quadrant 06/26/2009 Cholelithiasis 06/13/2009 Diabetes mellitus type 2, uncontrolled, without complications 02/16/2009 Overview: ICD10 Diagnosis Term Administration Vice President Utility Chronic kidney disease (CKD), stage II (mild) 01/08/2009 Other acute embolism veins 01/22/2008 Polyneuropathy in other diseases classified elsewhere 08/28/2007 Postmenopausal atrophic vaginitis 08/28/2007 Pain in limb 08/28/2007 Other ureteric obstruction 08/03/2007 Anxiety state 06/13/2007 Overview: ICD10 Diagnosis Term Administration Vice President Utility Benign hypertensive heart disease without heart failure 06/13/2007 Hydronephrosis 03/13/2007 Glaucoma Dermatophytosis, nail Overview: all toenails documented as of this encounter (statuses as of 06/25/2019) Immunizations Name Administration Dates Next Due Influenza [...] Treatment Date Type Specialty Care Team Description 09/23/2019 Office Visit Orthopedic Surgery Deysi Gil, DPM [address] [place] [address] 10/29/2019 Office Visit Urology Khadijah Molina, RESIDENTIAL CAREGIVER [address] [phone] 10/29/2019 Office Visit Ophthalmology Herbert Moreno MD [address] [place] [address] Health Maintenance Due Date Last Done Comments DTaP,Tdap,and Td Vaccines (1 - 1953 Tdap) Zoster Recombinant Vaccine 1992 (SHINGRIX) (1 [...] 2019 07/23/2017, 03/07/2014, 04/09/2009, Additional history exists CREATININE (SERUM) 09/06/2019 09/05/2018, 02/23/2018, 02/21/2018, Additional history exists EYE EXAM 01/26/2020 01/25/2019, 06/21/2018, 06/05/2018, Additional history exists documented as of this encounter Implants Implanted Type Area Maintenance Shop Laborer Device Shelf Model / Serial Identifier Expiration / Lot Date Lens, Cayetano #Sn60wf 23.0d - [id number] LENS Right: Cayetano 02/25/2021 SN60WF 23.0D / Implanted: Qty: 1 on 07/05/2017 by Herbert Moreno MD at [facility] Eye [id number] / 0000 Lens, Cayetano #Sn60wf - [id number] LENS Left: Eye Cayetano 08/26/2022 SN60WF / Implanted: Qty: 1 on 12/19/2017 by Herbert Moreno MD at [facility] [id number] / 0000 documented as of this encounter Results Not on filedocumented in this encounter Visit Diagnoses Diagnosis Primary open angle glaucoma of both eyes, unspecified glaucoma stage documented in this encounter Insurance Payer Benefit Plan / Subscriber ID Effective Dates Phone Address Type Group MEDICARE MEDICARE PART xxxxxxxxxxx 2007-Sarah [phone] Medicare A & B [place] 2 [id number] [id number] [id number] documented as of this encounter Advance Directives Type Date Recorded Patient Aviculturist Explanation Advance Directives and Living Will Power of Store Facility Technician 03/20/2013 10:20 AM Name Relationship Healthcare Agent Relationship Communication Joslyn Cuate Child Primary healthcare agent
--- OUTSIDE RECORDS SUMMARY | 2019-08-06 12:41 | XMS REPORT | Summary of Care ---
:1940 Author Organization [facility] Address [address] [place] [address] Care Team Providers Name Role Phone Yovani Laurent MD Primary Care Provider Reason for Visit Reason Comments Refill Request Encounter Details Date Type Department Care Team Description 06/25/2019 Refill [facility] Eye NabilHemant tellez MD Refill Request Center[address] [id number] [address] [facility] [place] [address] [place] [phone] Allergies Active Allergy Reactions Severity Noted Date [...] Strip 2 05/01/2018 Active diagnostic once daily. (Velocent SystemsUCH ULTRA E11.65 BLUE TEST STRIP) strip SERTraline [...] Overview: Added automatically from request for surgery [id number] Mesenteric ischemia 11/16/2017 Overview: Chronicity unknown Nonocclusive mesenteric ischemia 11/15/2017 Generalized weakness 11/13/2017 Nuclear senile cataract of left eye 11/02/2017 Overview: Added automatically from request for surgery [id number] Chest pain, atypical 08/04/2017 Senile nuclear sclerosis, bilateral 06/13/2017 Overview: Added automatically from request for surgery [id number] Primary open angle glaucoma of both eyes, unspecified glaucoma stage 2017 Overview: Added automatically from request for surgery [id number] Pinguecula 09/19/2012 POAG (primary open-angle glaucoma) 07/13/2012 Overview: Both eyes Senile nuclear sclerosis 07/13/2012 Blepharitis of both eyes 07/13/2012 NO SHOW 05/09/2012 Angioedema 07/06/2009 Abdominal pain, right upper quadrant 06/26/2009 Cholelithiasis 06/13/2009 Diabetes mellitus type 2, uncontrolled, without complications 02/16/2009 Overview: ICD10 Diagnosis Term Forging Die Sinker Utility Chronic kidney disease (CKD), stage II (mild) 01/08/2009 Other acute embolism veins 01/22/2008 Polyneuropathy in other diseases classified elsewhere 08/28/2007 Postmenopausal atrophic vaginitis 08/28/2007 Pain in limb 08/28/2007 Other ureteric obstruction 08/03/2007 Anxiety state 06/13/2007 Overview: ICD10 Diagnosis Term Forging Die Sinker Utility Benign hypertensive heart disease without heart [...] Visit Orthopedic Surgery Deysi Gil, DPM [address] [place] [address] 10/29/2019 Office Visit Urology Khadijah Molina, UNARMED SECURITY GUARD [address] [id number] 10/29/2019 Office Visit Ophthalmology Herbert Moreno MD [address] [place] [address] Health Maintenance Due Date Last Done [...] of this encounter Implants Implanted Type Area Power House Control Room Operator Device Shelf Model / Serial Identifier Expiration / Lot Date Lens, Cayetano #Sn60wf 23.0d - [id number] LENS Right: Cayetano 02/25/2021 SN60WF 23.0D / Implanted: Qty: 1 on 07/05/2017 by Herbert Moreno MD at [facility] Eye [id number] / 0000 Lens, Cayetano #Sn60wf - [id number] LENS Left: Eye Cayetano 08/26/2022 SN60WF / Implanted: Qty: 1 on 12/19/2017 by Herbert Moreno MD at [facility] [id number] / 0000 documented as of this encounter Results Not on filedocumented in this encounter Visit Diagnoses Diagnosis Primary open angle glaucoma of both eyes, unspecified glaucoma stage documented in this encounter Insurance Payer Benefit Plan / Subscriber ID Effective Dates Phone Address Type Group MEDICARE MEDICARE PART xxxxxxxxxxx 2007-Sarah [phone] Medicare A & B nt 2 [id number] [place] [phone] documented as of this encounter Advance Directives Type Date Recorded Patient Cardiovascular Disease Specialist Explanation Advance Directives and Living Will Power of Bread Distributor 03/20/2013 10:20 AM Name Relationship Healthcare Agent Relationship Communication Joslyn Cuate Child Primary healthcare agent
--- NOTE | 2019-08-06 12:42 | RAD REPORT ---
EXAM DESCRIPTION: RAD - Chest Single View - 08/06/2019 12:35 pm CLINICAL HISTORY: upper abd pain Chest pain. COMPARISON: Abdomen Acute Series dated 07/12/2019 FINDINGS: Portable technique limits examination quality. The lungs are grossly clear. The heart is normal in size. No displaced fractures. IMPRESSION: No acute intrathoracic process suspected.
[2019-08-06] MEDS ORDERED: HYDROCODONE/APAP 5/325 MG TAB ONE (13:08)
[2019-08-06 13:31] LABS: Absolute Lymphocytes (CBC) 1.5 K/uL (0.7-4.9); Basophils % 1.3 % (0-1.3); Hematocrit 32.9 % (36.0-45.0); Lymphocytes % 21.3 % (15.3-44.8); MPV 7.5 fL (7.6-11.3); RBC Red Blood Cell Count 3.72 M/uL (3.86-4.86)
[2019-08-06 13:48] LABS: ALT/SGPT 23 U/L (12-78); AST/SGOT 21 U/L (15-37); Albumin 3.6 g/dL (3.4-5.0); Alkaline Phosphatase 88 U/L (45-117); BUN Blood Urea Nitrogen 16 mg/dL (7-18); Bicarbonate 28 mmol/L (21-32); Bilirubin Direct < 0.1 mg/dL (0-0.2); Bilirubin Total 0.3 mg/dL (0.2-1.0); Glucose Level 156 mg/dL (74-106); Lipase 135 U/L (73-393); Protein, Total 7.9 g/dL (6.4-8.2); Sodium Level 138 mmol/L (136-145); Troponin (Emerg Dept Use Only) 0.05 ng/mL (0.0-0.045)
--- NOTE | 2019-08-06 14:29 | RAD REPORT ---
EXAM DESCRIPTION: CT - Head Brain Wo Cont - 08/06/2019 2:07 pm CLINICAL HISTORY: Head injury with headache status post fall COMPARISON: June 2019 TECHNIQUE: Computed axial tomography of the head was obtained. IV contrast was not requested. All CT scans are performed using dose optimization technique as appropriate and may include automated exposure control or mA/KV adjustment according to patient size. FINDINGS: An intracranial bleed is not seen . The ventricles are normal in caliber. No extra-axial fluid collection is noted. Fluid within the sinuses/ mastoids is not seen. IMPRESSION: No acute intracranial abnormality is seen. If patient's symptoms persist MRI of the bra in would be recommended.
--- NOTE | 2019-08-06 14:40 | RAD REPORT ---
EXAM DESCRIPTION: CT - Abdomen Pelvis Wo Contrast - 08/06/2019 2:10 pm CLINICAL HISTORY: Abdominal pain COMPARISON: None TECHNIQUE: Computed axial tomography of the abdomen and pelvis was obtained. IV and oral contrast we re not requested. All CT scans are performed using dose optimization technique as appropriate and may include automated exposure control or mA/KV adjustment according to patient size. FINDINGS: The evaluation of solid organs, vessels and bowel is limited secondary to the lack of con trast administration. Splenic granulomata. Liver, pancreas and adrenals appear grossly normal. Mild to moderate bilateral hydronephrosis. Ventral hernia repair. 11 centimeter fluid collection lies posterior to the mesh abutting the abdomin al wall. Small amount of fluid lies within the anterior subcutaneous fat abutting the abdominal wall. There is no evidence of diverticulitis. Normal appendix Atherosclerosis IMPRESSION: Ventral hernia repair. 11 centimeter fluid collection lies posterior to the abdominal wa ll mesh probably a subacute hematoma. Small amount of fluid lies within the adjacent anterior subcuta neous fat [id number] bilateral hydronephrosis. . A genitourinary calculus is not seen
[2019-08-06] MEDS ORDERED: MORPHINE 2 MG/ML SYR ONE (15:13)
[2019-08-06 15:28] LABS: Protime INR 1.11
--- NOTE | 2019-08-06 15:29 | EKG ---
Test Date: 2019-08-06 Test Time: 12:29:55 Quarry Supervisor Dimension Stone: RADHA MEASUREMENT RESULTS: Intervals: Rate: 65 UT: 146 QRSD: 84 QT: 434 QTc: 451 [place]: P: 65 UT: 146 QRS: 43 T: 53 INTERPRETIVE STATEMENTS: Sinus rhythm with premature atrial complexes with aberrant conduction Otherwise normal ECG Compared to ECG 07/12/2019 09:39:37 Atrial premature complex(es) now present Aberrant conduction of supraventricular beat(s) now present Sinus bradycardia no longer present Left ventricular hypertrophy no longer present Electronically Signed On 08-06-19 15:28:38 CDT by Rj Kwan
--- NOTE | 2019-08-06 15:46 | ER ---
Nurse's Notes [facility] Name: Scarlet Celeste Age: 79 yrs Sex: Female : 1940 Arrival Date: 08/06/2019 Time: 12:15 Bed 4 Private MD: Diagnosis: Chest pain, unspecified;Abdominal hematoma Presentation: 08/05 12:15 Chief complaint: EMS states: called out for chest pain that started around 1030, was em given 324 mg aspirin, also reports epigastric pain, had hernia repair about 4 weeks ago, denies N/V/D or fever, pt states she was in the hospital 1 week ago and did a cath. in her right wrist but did not put any stents. Coronavirus screen: The patient has NOT traveled to a country currently being monitored by the CDC within the last 14 days. The patient has NOT had contact with any known and/or suspected case of coronavirus. Ebola Screen: Patient negative for fever greater than or equal to 101.5 degrees Fahrenheit, and additional compatible Ebola Virus Disease symptoms Patient denies exposure to infectious person. Patient denies travel to an Ebola-affected area in the 21 days before illness onset. No symptoms or risks identified at this time. 12:15 Method Of Arrival: EMS: [facility] em 12:15 Initial Sepsis Screen: Does the patient meet any 2 criteria? No. Patient's initial em sepsis screen is negative. Does the patient have a suspected source of infection? No. Patient's initial sepsis screen is negative. Risk Assessment: Do you want to hurt yourself or someone else? Patient reports no desire to harm self or others. 12:15 Acuity: GUIDO 2 em Historical: - Allergies: 12:23 PENICILLINS; em 12:23 Lisinopril; em 12:23 Iodine; em - Home Meds: 12:33 carvedilol 12.5 mg oral tab [Active]; sulfamethoxazole-trimethoprim Oral [Active]; em CitraNatal Monroe (iron fum) 27 mg iron-1 mg -50 mg-260 mg oral cap [Active]; atorvastatin 40 mg oral tab [Active]; hydrocodone-acetaminophen 10-325 mg Oral tab [Active]; zolpidem 10 mg Oral tab [Active]; alprazolam 0.5 mg Oral tab [Active]; acetaminophen-codeine 300-30 mg Oral tab [Active]; metformin 1,000 mg Oral tab [Active]; amlodipine 10 mg tab [Active]; isosorbide mononitrate 10 mg Oral tab [Active]; pantoprazole 40 mg oral TbEC [Active]; clopidogrel 75 mg oral tab [Active]; - PMHx: 12:23 Diabetes - NIDDM; Hypertension; em - PSHx: 12:23 Hernia repair; em - Immunization history:: Adult Immunizations up to date. - Social history:: Smoking status: Patient denies any tobacco usage or history of. - Family history:: not pertinent. - Hospitalizations: : Patient was recently seen at. Screenin:15 Abuse screen: Denies threats or abuse. Nutritional screening: No deficits noted. em Tuberculosis screening: No symptoms or risk factors identified. Fall Risk None identified. Assessment: 12:20 General: Appears in no apparent distress. uncomfortable, Behavior is calm, cooperative, em Denies fever. Pain: Complains of pain in epigastric area Pain does not radiate. Pain currently is 8 out of 10 on a pain scale. Pain began 2 hours ago. Neuro: Level of Consciousness is awake, alert, obeys commands, Oriented to person, place, time, situation, Appropriate for age. Cardiovascular: Reports chest pain, Denies shortness of breath, Capillary refill < 3 seconds Patient's skin is warm and dry. Rhythm is sinus bradycardia. Respiratory: Airway is patent Respiratory effort is even, unlabored, Respiratory pattern is regular, symmetrical. GI: Abdomen is flat, Bowel sounds present X 4 quads. Abd is soft X 4 quads Abdomen is tender to palpation X 4 quads. Patient currently denies nausea, vomiting. Derm: Skin is intact, is healthy with good turgor, Skin is pink, warm \T\ dry. Musculoskeletal: Capillary refill < 3 seconds, Range of motion: intact in all extremities. 13:00 Reassessment: daughter reports she had a syncopal episode, Dr. Zelaya notified. em 14:33 Reassessment: Patient appears in no apparent distress at this time. Dr. Zelaya at em bedside. 15:40 Reassessment: Patient appears in no apparent distress at this time. Patient and/or em family updated on plan of care and expected duration. Pain level reassessed. Patient is alert, oriented x 3, equal unlabored respirations, skin warm/dry/pink. Vital Signs: 12:15 BP 179 / 71; Pulse 62; Resp 18; Temp 97.5(O); Pulse Ox 99% on R/A; Weight 58.97 kg; em Height 5 ft. 4 in. (162.56 cm); Pain 8/10; 13:30 BP 137 / 72; Pulse 63; Resp 18; Pulse Ox 99% on R/A; Pain 5/10; em 14:30 BP 136 / 74; Pulse 60; Resp 18; Pulse Ox 99% on R/A; Pain 9/10; em 15:42 BP 143 / 67; Pulse 63; Resp 18; Pulse Ox 99% on R/A; Pain 5/10; em 12:15 Body Mass Index 22.31 (58.97 kg, 162.56 cm) em ED Course: 12:15 Patient arrived in ED. em 12:15 Patient has correct armband on for positive identification. Bed in low position. Call em light in reach. Side rails up X2. Adult w/ patient. child monitor on. Pulse ox on. NIBP on. 12:15 Patient maintains SpO2 saturation greater than 95% on room air. em 12:19 Triage completed. em 12:19 Jered Zelaya MD is Attending Physician. rn 12:23 Gibran Miles RN is Primary Nurse. em 12:23 Arm band placed on. em 12:36 XRAY Chest (1 view) In Process Unspecified. EDMS 13:10 Initial lab(s) drawn, by me, sent to lab. Inserted saline lock: 22 gauge in right em antecubital area, using aseptic technique. Blood collected. 14:08 CT Head Brain wo Cont In Process Unspecified. EDMS 14:12 Abdomen In Process Unspecified. EDMS 15:45 Winifred Schwartz MD is Hospitalizing Provider. rn 17:10 Urine collected: clean catch specimen, clear, rancho colored. jb1 17:33 No provider procedures requiring assistance completed. Patient admitted, IV remains in em place. Administered Medications: 13:03 Not Given (Patient Refused): GI Cocktail without - (Maalox Suspension 30 ml, em Lidocaine Liquid 2 % 15 ml) PO once 13:05 Drug: Kirby 5 mg-325 mg 1 tabs Route: PO; em 14:50 Follow up: Response: No adverse reaction; Pain is unchanged, physician notified; RASS: em Alert and Calm (0) 15:10 Drug: morphine 2 mg Route: IVP; Site: right antecubital; em 15:58 Follow up: Response: No adverse reaction; Marked relief of symptoms; Pain is decreased; em RASS: Alert and Calm (0) Outcome: 15:46 Decision to Hospitalize by Provider. rn 17:33 Admitted to Med/surg accompanied by tech, family with patient, via stretcher, room 229, em with chart, Report called to ANNMARIE Steele 17:33 Condition: good 17:33 Instructed on the need for admit, Demonstrated understanding of instructions. 17:53 Patient left the ED. em Signatures: Dispatcher [employer] [place]1 Gibran Miles, ANNMARIE RN em Jered Zelaya MD MD rn
--- NOTE | 2019-08-06 15:47 | EDPHYS ---
Physician Documentation [facility] Name: Scarlet Celeste Age: 79 yrs Sex: Female : 1940 Arrival Date: 08/06/2019 Time: 12:15 Bed 4 Private MD: ED Physician Jered Zelaya HPI: 08/05 12:23 This 79 yrs old Black Female presents to ER via EMS with complaints of abdominal pain. rn 12:23 The patient presents with abdominal pain in the epigastric area. rn 12:24 Onset: The symptoms/episode began/occurred at an unknown time. The symptoms do not rn radiate. Associated signs and symptoms: Pertinent positives: chest pain, constipation, Pertinent negatives: blood in stools, diarrhea, fever, hematuria, shortness of breath, vomiting, vomiting blood. The symptoms are described as achy. Modifying factors: The symptoms are alleviated by nothing, the symptoms are aggravated by touching the area. Severity of pain: At its worst the pain was mild in the emergency department the pain is unchanged. The patient has experienced similar episodes in the past. Reports epigastric abd pain, unsure onset, but states had hernia repair 4 weeks ago, states has had this pain on and off since then, pain goes away with pressure on epigastrium and when wears abd binder. When takes off binder, it hurts. Reports today also had short period of chest pain. Reports was visiting family recently and abd pain prompted her to go to ER, admitted, had heart cath that did not result in stent placement, told to take plavix and recommended medical management it sounds like. Told epigastric pain was from "fluid" and sent home.. Historical: - Allergies: 12:23 PENICILLINS; em 12:23 Lisinopril; em 12:23 Iodine; em - Home Meds: 12:33 carvedilol 12.5 mg oral tab [Active]; sulfamethoxazole-trimethoprim Oral [Active]; em CitraNatal [place] (iron fum) 27 mg iron-1 mg -50 mg-260 mg oral cap [Active]; atorvastatin 40 mg oral tab [Active]; hydrocodone-acetaminophen 10-325 mg Oral tab [Active]; zolpidem 10 mg Oral tab [Active]; alprazolam 0.5 mg Oral tab [Active]; acetaminophen-codeine 300-30 mg Oral tab [Active]; metformin 1,000 mg Oral tab [Active]; amlodipine 10 mg tab [Active]; isosorbide mononitrate 10 mg Oral tab [Active]; pantoprazole 40 mg oral TbEC [Active]; clopidogrel 75 mg oral tab [Active]; - PMHx: 12:23 Diabetes - NIDDM; Hypertension; em - PSHx: 12:23 Hernia repair; em - Immunization history:: Adult Immunizations up to date. - Social history:: Smoking status: Patient denies any tobacco usage or history of. - Family history:: not pertinent. - Hospitalizations: : Patient was recently seen at. ROS: 12:24 Constitutional: Negative for fever, chills, and weight loss, Eyes: Negative for injury, rn pain, redness, and discharge, Neck: Negative for injury, pain, and swelling, Cardiovascular: Negative for palpitations, and edema, Respiratory: Negative for shortness of breath, cough, wheezing, and pleuritic chest pain, Abdomen/GI: Negative for nausea, vomiting, diarrhea MS/Extremity: Negative for injury and deformity, Skin: Negative for injury, rash, and discoloration, Neuro: Negative for headache, numbness, tingling, and seizure. Exam: 12:24 Constitutional: Thin female, no acute distress Head/Face: Normocephalic, atraumatic. estate attorney: MMM Cardiovascular: Regular rate and rhythm. No pulse deficits. Respiratory: Speaking full sentences. No increased work of breathing, no retractions or nasal flaring. Abdomen/GI: soft, + firmness in epigastric region that she points to when asked where it hurts, most likely seroma as seems subcutaneous, no rebound, no skin changes. MS/ Extremity: Pulses equal, no cyanosis. Neuro: Awake and alert, GCS 15. Motor strength 5/5 in all extremities. Sensory grossly intact. Cerebellar exam normal. 12:31 ECG was reviewed by the Attending Physician. rn Vital Signs: 12:15 BP 179 / 71; Pulse 62; Resp 18; Temp 97.5(O); Pulse Ox 99% on R/A; Weight 58.97 kg; em Height 5 ft. 4 in. (162.56 cm); Pain 8/10; 13:30 BP 137 / 72; Pulse 63; Resp 18; Pulse Ox 99% on R/A; Pain 5/10; em 14:30 BP 136 / 74; Pulse 60; Resp 18; Pulse Ox 99% on R/A; Pain 9/10; em 15:42 BP 143 / 67; Pulse 63; Resp 18; Pulse Ox 99% on R/A; Pain 5/10; em 12:15 Body Mass Index 22.31 (58.97 kg, 162.56 cm) em MDM: 12:19 Patient medically screened. rn 13:58 Differential diagnosis: coronary artery disease, cholecystitis, Cholelithiasis, rn gastritis, gastroesophageal reflux disease, non-specific abd pain. 13:59 ED course: Daughter states that prior to leaving house when EMS arrived, seemed to have rn passed out, fell to ground, and hit head. . 14:51 ED course: CT shows large 11cm fluid collection posterior to abdominal wall mesh, rn likely hematoma, could be secondary to recent anticoagulation and initiation of plavix [address] Giles. . 15:44 Data reviewed: vital signs, nurses notes, lab test result(s), radiologic studies, CT rn scan, and as a result, I will admit patient. Counseling: I had a detailed discussion with the patient and/or guardian regarding: the historical points, exam findings, and any diagnostic results supporting the discharge/admit diagnosis, lab results, radiology results, the need for further work-up and treatment in the hospital. Response to treatment: the patient's symptoms have mildly improved after treatment, and as a result, I will admit patient. ED course: Consulted with Dr. Giles, reports performed ventral hernia repair, not much to do about hematoma other than monitor, hold plavix, and keep binder on. Will admit to Dr. Schwartz for further management and elevated troponin. . 08/05 12:21 Order name: Basic Metabolic Panel rn 08/05 12:21 Order name: CBC with Diff; Complete Time: 13:52 rn 08/05 12:21 Order name: Creatinine for Radiology; Complete Time: 13:52 rn 08/05 12:21 Order name: Hepatic Function; Complete Time: 13:52 rn 08/05 12:21 Order name: Lipase; Complete Time: 13:52 rn 08/05 12:21 Order name: Troponin (emerg Dept Use Only); Complete Time: 13:52 rn 08/05 12:21 Order name: Basic Metabolic Panel; Complete Time: 13:52 EDID 08/05 14:42 Order name: PT-INR rn 08/05 14:42 Order name: Ptt, Activated rn 08/05 16:04 Order name: Comprehensive Metabolic Panel EDID 08/05 16:04 Order name: Comprehensive Metabolic Panel [facility] 08/05 16:04 Order name: Magnesium EDID 08/05 16:04 Order name: Magnesium EDID 08/05 16:04 Order name: Magnesium [facility] 08/05 12:21 Order name: EKG; Complete Time: 12:22 rn 08/05 12:21 Order name: XRAY Chest (1 view); Complete Time: 13:52 rn 08/05 13:59 Order name: CT Head Brain wo Cont; Complete Time: 15:01 rn 08/05 14:12 Order name: Abdomen ; Complete Time: 15:01 EDID 08/05 16:03 Order name: CONS Pharmacy Consult [facility] 08/05 16:03 Order name: Occupational Therapy Consult [facility] 08/05 16:03 Order name: CONS Physician Consult [facility] 08/05 16:03 Order name: Physical Therapy Consult [facility] 08/05 16:04 Order name: Magnesium [facility] 08/05 16:04 Order name: Troponin I [facility] 08/05 16:04 Order name: Troponin I [facility] 08/05 16:04 Order name: Troponin I [facility] 08/05 12:21 Order name: IV Saline Lock; Complete Time: 13:22 rn 08/05 12:21 Order name: Labs collected and sent; Complete Time: 13:23 rn 08/05 12:21 Order name: EKG - Nurse/Tech; Complete Time: 13:22 rn 08/05 16:04 Order name: Heart Healthy EDID EC:31 Rate is 65 beats/min. Rhythm is regular. QRS [place] is Normal. [place] interval is normal. QRS rn interval is normal. QT interval is normal. No Q waves. T waves are Normal. No ST changes noted. Clinical impression: Normal ECG and PAC. Interpreted by me. Reviewed by me. Administered Medications: 13:03 Not Given (Patient Refused): GI Cocktail without - (Maalox Suspension 30 ml, em Lidocaine Liquid 2 % 15 ml) PO once 13:05 Drug: [place] 5 mg-325 mg 1 tabs Route: PO; em 14:50 Follow up: Response: No adverse reaction; Pain is unchanged, physician notified; RASS: em Alert and Calm (0) 15:10 Drug: morphine 2 mg Route: IVP; Site: right antecubital; em 15:58 Follow up: Response: No adverse reaction; Marked relief of symptoms; Pain is decreased; em RASS: Alert and Calm (0) Disposition: 08/06/19 15:46 Hospitalization ordered by Winifred Schwartz for Inpatient Admission. Preliminary diagnosis are Chest pain, unspecified, Abdominal hematoma. - Bed requested for Telemetry/MedSurg (Inpatient). - Status is Inpatient Admission. em - Condition is Stable. - Problem is new. - Symptoms have improved. Signatures: Dispatcher [employer] [facility] Annemarie Rankin RN RN Gibran Miles RN RN Jered Zelaya MD MD journeyman mechanic: (The following items were deleted from the chart) 14:12 12:22 Abdomen Pelvis W Con+CT.RAD.BRZ ordered. [facility] 16:20 15:46 Hospitalization Ordered by Winifred Schwartz MD for Inpatient Admission. Preliminary diagnosis is Chest pain, unspecified; Abdominal hematoma. Bed requested for Telemetry/MedSurg (Inpatient). Status is Inpatient Admission. Condition is Stable. Problem is new. Symptoms have improved. rn 17:53 16:20 08/06/2019 15:46 Hospitalization Ordered by Winifred Schwartz MD for Inpatient em Admission. Preliminary diagnosis is Chest pain, unspecified; Abdominal hematoma. Bed requested for Telemetry/MedSurg (Inpatient). Status is Inpatient Admission. Condition is Stable. Problem is new. Symptoms have improved. dw
[2019-08-06] MEDS ORDERED: MORPHINE 2 MG/ML SYR IV PRN (15:53)
[2019-08-06] MEDS ORDERED: ACETAMINOPHEN 500 MG TAB PO PRN (15:53)
[2019-08-06] MEDS ORDERED: ONDANSETRON 4 MG/2 ML VIAL IV PRN (15:53)
[2019-08-06] MEDS ORDERED: ALBUTEROL 2.5 MG/3 ML NEB SOL NEB PRN (15:53)
[2019-08-06] MEDS ORDERED: HYDRALAZINE HCL 20 MG/ML VIAL IV PRN (15:57)
[2019-08-06] MEDS ORDERED: PANTOPRAZOLE 40MG TABLET PO SCH (16:30)
[2019-08-06] MEDS: INSULIN -REGULAR HUMAN 50 UNIT/0.5 ML ML SQ SCH ×2 (16:30→19:57)
[2019-08-06 18:10] VITALS: O2SAT 99
[2019-08-06 18:18] VITALS: BMI 23.0
[2019-08-06 18:38] LABS: Magnesium 1.5 mg/dL (1.8-2.4); Troponin I 0.05 ng/mL (0.0-0.045)
[2019-08-06] MEDS: NA CHLORIDE 0.9% 1,000 ML IV SCH (18:40)
[2019-08-06] MEDS ORDERED: HYDROCODONE/APAP 10/325 TAB PO PRN (21:03)
[2019-08-06] MEDS ORDERED: ZOLPIDEM TARTRATE 10 MG TABLET PO PRN (21:03)
[2019-08-06] MEDS ORDERED: ALPRAZOLAM 0.5 MG TABLET PO PRN (21:03)
[2019-08-07 06:27] LABS: Absolute Lymphocytes (CBC) 1.9 K/uL (0.7-4.9); Basophils % 1.3 % (0-1.3); Hematocrit 31.9 % (36.0-45.0); Lymphocytes % 33.9 % (15.3-44.8); MPV 7.6 fL (7.6-11.3); RBC Red Blood Cell Count 3.62 M/uL (3.86-4.86)
[2019-08-07] MEDS ORDERED: PANTOPRAZOLE 40MG TABLET PO SCH ×2 (06:30→09:00)
[2019-08-07 06:43] LABS: Albumin 3.2 g/dL (3.4-5.0); Bilirubin Total 0.3 mg/dL (0.2-1.0); Magnesium 1.5 mg/dL (1.8-2.4); Potassium 3.5 mmol/L (3.5-5.1); Protein, Total 7.2 g/dL (6.4-8.2)
[2019-08-07] MEDS: INSULIN -REGULAR HUMAN 50 UNIT/0.5 ML ML SQ SCH ×2 (07:30→11:30)
--- NOTE | 2019-08-07 08:14 | HP ---
Date of Admission: 08/06/2019 Presenting Complaint: Abdominal pain. History Of Present Illness: Ms. Scarlet Celeste is a 79-year-old female with past m edical history of hypertension, diabetes mellitus, recent ventral wall repair with mesh 1 month ago, who has been having recurrent falls, since then developed abdominal pain. Pain is more in the epigas tric and upper abdominal area radiating to the lower chest and also to the clavicular area. The rossi ent states she has been having pain symptoms since the last 1 week. She was evaluated in the ED 3 we eks ago for similar symptoms in setting of fall. She also was evaluated at [facility] in [facility] last week for similar symptoms. She had an abnormal stress test then and she proceeded to have a cardiac catheterization done via right wrist artery access. She was reportedly told that she has a negative cardiac cath and no stent was placed. She was sent on Plavix 4 days ago. Patient states she did not start taking the Plavix until . She developed recurrence of the abdominal pain today, which started after she had a fall. She was using the bathroom earlier this morning and she felt some dizziness with blurring of vision and while attempting to get up she has fallen to her left side after which she also hit her head. Post fall, she developed recurrence of the abdominal pain r adiating to the chest and presented to the ED. She still continued to have pain now despite sublingu al nitroglycerin. Though she rates pain as about 2/10 now. Pain significantly improved after she wa s given a GI cocktail as well as [place] and morphine. She admit to some headaches that have since res olved. She denies any shortness of breath or fever or chills. CT shows evidence of a mesh area [place] marilu collection. Past Medical History: Significant for hypertension, diabetes mellitus, recent negative cardiac cath, history of ventral wall hernia status post mesh repair, history of recurrent falls, she has had 5 fa lls since the last 1 month. Allergies: PENICILLIN, LISINOPRIL, IODINE. Home Medications: Include Coreg, Bactrim, atorvastatin, [place], Ambien, Xanax, metformin, amlodipine, isosorbide, pantoprazole, as well as recently started Plavix. Past Surgical History: Recent hernia repair 1 month ago. Social History: Patient resides in the community with her daughter. She ambulates independently, al though she has been having recurrent falls. She is fully functional at baseline. She denies any tob acco, alcohol, or any illicit drug use. Review of Systems: All systems reviewed x14 were negative except as mentioned above. Family History: Noncontributory in this elderly female. Physical Examination: Vitals Signs: Blood pressure of 122/71, respiratory rate of 18, pulse of 60, O2 saturation of 99 on room air. On initial presentation, blood pressure 136/74 with pulse of 63. Weight of 58.9. General: Average built, elderly female, calm, not in any distress. HEENT: Head is normocephalic, but abrasion over the mid forehead. Pupils equal, reactive to light. Anicteric. No conjunctival injection or bleed. Moist oral mucosa. Neck: No JVD. No carotid bruit. Respiratory: Good air entry. No crepitation. Cardiovascular: S1, S2. Rate and rhythm regular. No reproducible chest wall tenderness. GI: Abdomen full, soft. Bowel sounds positive. No epigastric tenderness. Healed midline scar note d. No surrounding hematoma or palpable hematoma elicited. Normal ballottable kidneys. No suprapubi c fullness. Rectal: Deferred. Extremities: No pedal edema. No calf tenderness. No abrasion. Neuro: Patient is alert and oriented. Cranial nerves 2 through 12 grossly intact. No neurological focal motor deficit. Laboratory Data: Imaging, CT of the abdomen shows ventral hernia repair, 11 cm fluid collection post erior to the abdominal wall mesh, probably subacute hematoma. Small amount of fluid lies within the adjacent anterior subcutaneous fat, [id number] bilateral hydronephrosis, but the genitourinary calculus not seen. Chest x-ray shows no acute intraabdominal pathology. Head CT shows no acute intr acranial pathology. EKG shows normal sinus rhythm at 65 beats per minute with premature atrial compl exes. Rest of labs, sodium 138, potassium 4, glucose 156, calcium 9.4, magnesium pending. AST and alkaline phosphatase normal. Troponin 0.05. Repeat pending. WBC 6.9, neutrophils 60%, hemoglobin 10.7, dany telets 291. INR 1.1, PTT 24. Impression: 1.Abdominal pain, likely due to ventral wall hematoma post fall. 2.Recurrent falls. 3.Chest pain, atypical due to ventral wall and due to abdominal pain. 4.Rule out orthostatic hypotension. 5.Diabetes mellitus. 6.History of hypertension. Plan: We will admit patient to observation. We will manage patient for the following, 1.Ventral wall hernia. Given recently started Plavix, although patient was not taking, we will hold Plavix for now until the hematoma resolved. Continue lipid-lowering medication as well as isosorbid e. We will monitor H and H daily. 2.Atypical chest pain, ruled out for acute coronary artery syndrome given negative cardiac cath 1 we ek ago as well as patient's description of pain due to abdominal etiology. We will do serial set of cardiac enzymes. Continue pain control with p.r.n. morphine. 3.Hypertension. High suspicion for orthostatic symptoms. We will obtain orthostatic vitals and fol low. 4.Recurrent falls may be due to recent hospitalization and surgery. We will consult PT and OT for a mbulation exercises. Patient might benefit from short-term rehab. 5.Diabetes mellitus. We will resume metformin, insulin sliding scale as tolerated. 6.Advance directives. Patient is full code. 7.Dispo: Possible 24-48 hours hospital stay. 8.We will consult General Surgery, Dr. Giles, who operated on the patient. Total time spent in review of record, discussion with patient and evaluation greater than 60 minutes. We will follow. KATHY/TYREE Voice ID: [id number]
[2019-08-07] MEDS ORDERED: AMLODIPINE 10 MG TAB PO SCH (09:00)
[2019-08-07] MEDS ORDERED: METFORMIN HCL 500 MG TAB PO SCH (09:00)
[2019-08-07] MEDS ORDERED: carvediloL 12.5 MG TAB PO SCH (09:00)
[2019-08-07] MEDS ORDERED: ISOSORBIDE MONO SR 60 MG TAB PO SCH (09:00)
[2019-08-07] MEDS: CLOPIDOGREL 75 MG TABLET PO SCH ×2 (09:00→09:46)
--- NOTE | 2019-08-07 10:01 | CON ---
Date of Consultation: 08/06/2019 Reason For Consultation: Abdominal pain. History Of Present Illness: Patient is a 79-year-old female, who underwent a ventral wall hernia rep air with mesh laparoscopically a month ago and since then she has had some falls and she had some [address] pain. Last week she was in [place] in [place] and had a stress test that was abnormal and then had a cardiac cath. She has not had stents placed however. There was some plaques noted. She was started on Plavix and then yesterday she fell again and following which she had abdominal pain. She was evaluated in the emergency room, was found to have an abdominal wall hematoma, I was consulted an d she was admitted as her troponin was slightly elevated. She currently feels much better. She had stopped putting on the abdominal binder prior to the fall. Currently, she is asymptomatic, toleratin g diet. No sore throat, runny nose, cough, headaches, or dizziness. No current chest pain. No curr ent abdominal pain. No fever or chills. Review of Systems: Otherwise unremarkable. Past Medical History: Hypertension, diabetes, recent cardiac cath, history of laparoscopic repair of ventral wall hernia. Allergies: PENICILLIN, LISINOPRIL, LORATADINE. Social History: She does not smoke or drink. Family History: Noncontributory. Her bowel sounds are currently stable. Physical Examination: Vital Signs: She is afebrile. She is awake, alert, and oriented x3. Head and Neck: No masses. Chest: Clear. Heart: S1, S2. Abdomen: Soft, nondistended. Positive bowel sounds. Minimal tenderness in the epigastric region. There is a palpable small hematoma present underneath the skin. There is no redness. There is no ten derness. Extremity: Adequately perfused. Nontender. Neuro: Nonfocal. Laboratory Data: H and H were 10.7 and 32.9 yesterday, 10.6 and 31.9 today. There is no left shift. INR is 1.11. Chemistry reviewed. CT of the abdomen and pelvis reviewed, which basically showed an 11-cm fluid col lection, was posterior to the mass abutting the abdominal wall. Small amount of fluid lies within th e anterior subcutaneous fat abutting the abdominal wall, mild to moderate bilateral hydro. No stone is seen. Assessment: 79-year-old female with multiple medical problems with a recent fall and abdominal wall hematoma. Recommendations: At this point, as the patient is eating and pain is controlled, I do not think we n eed to do any surgical intervention or radiographic intervention. I would recommend abdominal wall b ambrose, symptomatic treatment for the discomfort with heat and pain medicine as needed. She will foll ow up with me in my office in 1 to 2 weeks. Plan of care discussed to Dr. Schwartz. Patient can be discharged home today if her cardiac workup was negative. HOWIE/TYREE Voice ID: [id number] Report ID: [id number]
[2019-08-07] MEDS ORDERED: MAGNESIUM SULFATE 1 gm IVPB 1 GM/100 ML BAG IV ONE (11:00)
--- NOTE | 2019-08-07 11:34 | P.DS ---
Admission Date: 08/06/19 Discharge Date: 08/07/19 Disposition: DC HOME/HOME HEALTH CARE Discharge Condition: FAIR Brief History of Present Illness: History Of Present Illness: Ms. Scarlet Celeste is a 79-year-old female with past medical history of hypertension, diabetes mellitus, recent ventral wall repair with mesh 1 month ago, who has been having recurrent falls, since then developed abdominal pain. Pain is more in the epigastric and upper abdominal area radiating to the lower chest and also to the clavicular area. The patient states she has been having pain symptoms since the last 1 week. She was evaluated in the ED 3 weeks ago for similar symptoms in setting of fall. She also was evaluated at [facility] in [facility] last week for similar symptoms. She had an abnormal stress test then and she proceeded to have a cardiac catheterization done via right wrist artery access. She was reportedly told that she has a negative cardiac cath and no stent was placed. She was sent on Plavix 4 days ago. Patient states she did not start taking the Plavix until . She developed recurrence of the abdominal pain today, which started after she had a fall. She was using the bathroom earlier this morning and she felt some dizziness with blurring of vision and while attempting to get up she has fallen to her left side after which she also hit her head. Post fall, she developed recurrence of the abdominal pain radiating to the chest and presented to the ED. She still continued to have pain now despite sublingual nitroglycerin. Though she rates pain as about 2/10 now. Pain significantly improved after she was given a GI cocktail as well as [place] and morphine. She admit to some headaches that have since resolved. She denies any shortness of breath or fever or chills. CT shows evidence of a mesh area hematoma collection. Past Medical History: Significant for hypertension, diabetes mellitus, recent negative cardiac cath, history of ventral wall hernia status post mesh repair, history of recurrent falls, she has had 5 falls since the last 1 month. Hospital Course: Patient admitted for recurrent falls and weakness. She also complained of abdominal pain radiating to the chest. She was ruled out for acute coronary syndrome with negative sets of cardiac enzymes. CT of the abdomen shows 11 cm posterior to med hematoma. She was evaluated by her operating surgeon Dr. Malagon is was due to recurrent falls. Patient was noted to be on both Ambien and Xanax which was felt to be contributing to fallsr. Th ambien was discontinued . She was not found to be orthostatic she has transient elevated blood pressure be for home meds were resumed. Home physical therapy has been arranged for the patient by case management. Vital Signs/Physical Exam: Temp Pulse Resp BP Pulse Ox 97 F 56 18 134/65 99 08/07/19 08:00 08/07/19 08:00 08/07/19 08:00 08/07/19 08:00 08/07/19 08:00 General: Alert, In no apparent distress, Oriented x3 HEENT: Atraumatic, Normocephalic Neck: Supple, 2+ carotid pulse no bruit, JVD not distended Respiratory: Clear to auscultation bilaterally, Normal air movement Cardiovascular: Normal pulses, Regular rate/rhythm, Normal S1 S2 Gastrointestinal: Normal bowel sounds, Soft and benign, Non-distended, No tenderness, Other (healed suture line ) Musculoskeletal: No clubbing, No swelling Integumentary: No breakdown, No significant lesion Neurological: Normal speech, Normal strength at 5/5 x4 extr, Normal tone Laboratory Data at Discharge: WBC 5.7 K/uL (4.3-10.9) D 08/07/19 05:39 Hgb 10.6 g/dL (12.0-15.0) L 08/07/19 05:39 Hct 31.9 % (36.0-45.0) L 08/07/19 05:39 Plt Count 248 K/uL (152-406) 08/07/19 05:39 PT 13.1 SECONDS (9.5-12.5) H 08/06/19 15:02 INR 1.11 08/06/19 15:02 APTT 24.8 SECONDS (24.3-36.9) 08/06/19 15:02 Sodium 141 mmol/L (136-145) 08/07/19 05:39 Potassium 3.5 mmol/L (3.5-5.1) 08/07/19 05:39 BUN 12 mg/dL (7-18) 08/07/19 05:39 Creatinine 0.99 mg/dL (0.55-1.3) 08/07/19 05:39 Glucose 96 mg/dL (74-106) 08/07/19 05:39 Magnesium 1.5 mg/dL (1.8-2.4) L 08/07/19 05:39 Total Bilirubin 0.3 mg/dL (0.2-1.0) 08/07/19 05:39 AST 26 U/L (15-37) 08/07/19 05:39 ALT 27 U/L (12-78) 08/07/19 05:39 Alkaline Phosphatase 76 U/L (45-117) 08/07/19 05:39 Troponin I 0.05 ng/mL (0.0-0.045) H 08/06/19 22:01 Lipase 135 U/L (73-393) 08/06/19 13:10 Home Medications: ALPRAZolam [Xanax*] 0.5 mg PO BID PRN 08/06/19 Acetaminophen with Codeine [Acetaminophen-Cod #3 Tablet] 1 each PO Q4HR PRN 03/17 Amlodipine Besylate 10 mg PO DAILY 08/06/19 Atorvastatin Calcium [Lipitor] 40 mg PO BEDTIME 08/06/19 Carvedilol [Coreg] 12.5 mg PO BID 08/06/19 Clopidogrel Bisulfate [Plavix*] 75 mg PO DAILY 08/06/19 Hydrocodone/Acetaminophen [Hydrocodone-Acetamin 10-325 mg] 1 each PO BID PRN 03/17 Isosorbide Mononitrate [Isosorbide Mononitrate ER] 60 mg PO DAILY 08/06/19 Latanoprost/Pf [Latanoprost 0.005% Eye Drop] 7.5 ml OP BEDTIME 08/06/19 Metformin HCl 1,000 mg PO BID 08/06/19 Pantoprazole [Protonix Tab*] 40 mg PO DAILY 08/06/19 Timolol 0.5% Opth [Timoptic 0.5% Opth*] 1 drops EACH EYE BID 08/06/19 Diet: Low sodium Activity: Ad noel
[2019-08-07] MEDS: NA CHLORIDE 0.9% 1,000 ML IV SCH (12:00)
[2019-08-07 12:47] VITALS: BP 135/69; TEMP 98.1
[2019-08-07] MEDS ORDERED: [UNRECOGNIZED DRUG - OTHER] IV ONE (13:44)
[2019-08-07] MEDS ORDERED: HYDROCORTISONE SUC 100 MG INJ ONE (13:44)
[2019-08-07] MEDS ORDERED: NA CHLORIDE 0.9% 100 ML ONE (13:44)
[2019-08-07] MEDS ORDERED: DIPHENHYDRAMINE 50 MG/ML VIAL ONE (13:44)
[2019-08-07] MEDS ORDERED: ATORVASTATIN 40 MG TAB PO SCH (21:00)
== END 2019-08-07 13:47 | disposition home health service (06) ==
LOC: ER 12:14 → ERHOLD 15:54 → 2ND 17:34
PROVIDERS: ADMIT Internal Medicine; ATTEND Internal Medicine
DX: S30.1XXA Contusion of abdominal wall, initial encounter (principal); W19.XXXA Unspecified fall, initial encounter; R07.89 Other chest pain; N13.30 Unspecified hydronephrosis; E11.9 Type 2 diabetes mellitus without complications; I10 Essential (primary) hypertension; Z91.81 History of falling; Z79.84 Long term (current) use of oral hypoglycemic drugs; Z79.891 Long term (current) use of opiate analgesic; Z79.02 Long term (current) use of antithrombotics/antiplatelets; Z79.899 Other long term (current) drug therapy
CPT/HCPCS: 93005; 85025 ×2; 80048; 36415; 83735 ×2; 85610; 82947 ×4; 80076; 85730; 84484 ×3; 83690; 80053; 70450; 74176; 71045; 97161; 96374; 99285; J1200; J3475; J2270 ×2; J1568; J7030; J1720; G0378 ×3; J0360